=== PATIENT | male | born 1990 | race Caucasian/White ===

== ENCOUNTER 2021-03-16 01:54 | Emergency (ER) | payer OTHER ==
[2021-03-16 02:08] VITALS: TEMP 98.3
[2021-03-16] MEDS ORDERED: SODIUM CHLORIDE 0.9% 500 ML 500 ML IV STA (02:10)
[2021-03-16] MEDS ORDERED: SODIUM CHLORIDE 0.9% 1,000 ML IV STA ×4 (02:10→03:45)
[2021-03-16] MEDS ORDERED: ONDANSETRON 4 MG/2 ML VIAL IVP STA (02:10)
[2021-03-16] MEDS ORDERED: MORPHINE SULFATE 4 MG/ML SYRINGE IV STA (02:10)
--- NOTE | 2021-03-16 02:12 | ED ---
Nausea/Vomiting/Diarrhea HPI - General Chief complaint: Abdominal Pain Stated complaint: ABD Pain Time Seen by Provider: 03/16/21 01:58 Source: patient, EMS, RN notes reviewed, old records reviewed Mode of arrival: EMS Limitations: no limitations - History of Present Illness Initial comments: This is a 30 year old male to the ED for severe abdominal pain, NV, inability to pass bowel movements or inability to pass stool, no flatulence, decreased appeti te for the past week. Patient feels lightheaded dizzy tachycardic. Severe severe abdominal pain with abdominal bloating. Patient is recent history of rectal prolapse surgery almost a week ago to the date. Patient is without fever. Patient is a poor strain secondary to clinical state and history is helped to be obtained from EMS. Patient had surgery at [facility] Dr. Rigoberto ALSTON complaint: nausea, vomiting, diarrhea, abdominal pain -: days(s) Description of Vomiting: food contents Description of Diarrhea: water Associated Abdominal Pain: No Location: diffuse Radiation: none Severity: severe Severity scale (1-10): 10 Quality: constant Consistency: constant Improves with: none Worsens with: none Context: recent surgery/procedure, history of abdominal surgery Associated Symptoms: loss of appetite, nausea/vomiting, weakness - Related Data Allergies Allergy/AdvReac Type Severity Reaction Status Date / Time No Known Allergies Allergy Verified 03/16/21 02:14 Review of Systems ROS Statement: Those systems with pertinent positive or pertinent negative responses have been documented in the HPI. ROS Other: All systems not noted in ROS Statement are negative. Past Medical History Additional Past Medical History / Comment(s): Rectal prolapse History of Any Multi-Drug Resistant Organisms: None Reported Additional Past Surgical History / Comment(s): Rectal Prolapse Repair Smoking Status: Former smoker Past Alcohol Use History: None Reported Past Drug Use History: None Reported General Exam Limitations: no limitations General appearance: alert, in no apparent distress, anxious, lethargic, in distress, cachectic Head exam: Present: atraumatic, normocephalic, normal inspection Eye exam: Present: normal appearance, PERRL, EOMI. Absent: scleral icterus, conjunctival injection, periorbital swelling ENT exam: Present: normal exam, mucous membranes moist Neck exam: Present: normal inspection. Absent: tenderness, meningismus, lymphadenopathy Respiratory exam: Present: normal lung sounds bilaterally. Absent: respiratory distress, wheezes, rales, rhonchi, stridor Cardiovascular Exam: Present: normal rhythm, tachycardia, normal heart sounds. Absent: systolic murmur, diastolic murmur, rubs, gallop, clicks GI/Abdominal exam: Present: distended, tenderness, guarding, rebound, rigid, hypoactive bowel sounds Extremities exam: Present: normal inspection, full ROM, normal capillary refill. Absent: tenderness, pedal edema, joint swelling, calf tenderness Back exam: Present: normal inspection Neurological exam: Present: alert, oriented X3, CN II-XII intact Psychiatric exam: Present: normal affect, normal mood Skin exam: Present: warm, dry, intact, normal color. Absent: rash Course Vital Signs 03/16/21 03/16/21 03/16/21 01:57 02:39 03:17 Temperature 98.3 F Pulse Rate 124 H 113 H 118 H Respiratory 18 30 H 30 H Rate Blood Pressure 128/92 153/89 154/87 O2 Sat by Pulse 95 100 98 Oximetry 03/16/21 03/16/21 03/16/21 03:47 04:08 04:17 Temperature Pulse Rate 163 H 164 H 151 H Respiratory 28 H 30 H 28 H Rate Blood Pressure 131/74 129/85 O2 Sat by Pulse 97 97 98 Oximetry 03/16/21 03/16/21 03/16/21 04:29 04:45 04:59 Temperature Pulse Rate 160 H 154 H 152 H Respiratory 28 H 30 H 30 H Rate Blood Pressure 131/82 135/91 122/60 O2 Sat by Pulse 98 98 97 Oximetry 03/16/21 03/16/21 05:14 05:30 Temperature Pulse Rate 160 H 164 H Respiratory 30 H 18 Rate Blood Pressure 115/80 132/100 O2 Sat by Pulse 98 98 Oximetry - Reevaluation(s) Reevaluation #1: 03/16/21 04:09 medical record is reviewed Reevaluation #2: 03/16/21 04:12 Patient continued of increasing elevated heart rate, increased abdominal pain nausea feels like he 0 bowel movement but is not vomiting and not able to pass any stool No active bloody vomit no active bloody stool - Consultations Consultation #1: Attempt to transfer patient back to [facility] does not except patient transferred Consultation #2: Spoke with our on-call surgeon who is unfamiliar with rectal prolapse surgery and recommends transfer Medical Decision Making - Medical Decision Making 30 male with postop pneumoperitoneum likely rectal perforation with free fluid in the abdomen significant ileus. Unable to transfer patient to the care of his surgeon. Patient will be transferred for definitive care - Lab Data Result diagrams: 03/16/21 02:34 03/16/21 02:34 Lab Results 03/16/21 03/16/21 03/16/21 Range/Units 02:30 02:34 02:34 WBC 13.1 H (3.8-10.6) k/uL RBC 3.81 L (4.30-5.90) m/uL Hgb 11.2 L (13.0-17.5) gm/dL Hct 32.5 L (39.0-53.0) % MCV 85.3 (80.0-100.0) fL MCH 29.5 (25.0-35.0) pg MCHC 34.5 (31.0-37.0) g/dL RDW 12.9 (11.5-15.5) % Plt Count 306 (150-450) k/uL MPV 10.5 Neutrophils % 88 % Lymphocytes % 5 % Monocytes % 5 % Eosinophils % 1 % Basophils % 0 % Neutrophils # 11.5 H (1.3-7.7) k/uL Lymphocytes # 0.7 L (1.0-4.8) k/uL Monocytes # 0.6 (0-1.0) k/uL Eosinophils # 0.1 (0-0.7) k/uL Basophils # 0.0 (0-0.2) k/uL PT 11.1 (9.0-12.0) sec INR 1.1 (<1.2) APTT 27.4 (22.0-30.0) sec VBG pH 7.45 H (7.31-7.41) VBG pCO2 43 (37-51) mmHg VBG HCO3 29 H (24-28) mmol/L Sodium (137-145) mmol/L Potassium (3.5-5.1) mmol/L Chloride (98-107) mmol/L Carbon Dioxide (22-30) mmol/L Anion Gap mmol/L BUN (9-20) mg/dL Creatinine (0.66-1.25) mg/dL Est GFR (CKD-EPI)AfAm (>60 ml/min/1.73 sqM) Est GFR (CKD-EPI)NonAf (>60 ml/min/1.73 sqM) Glucose (74-99) mg/dL Lactic Ac Sepsis Rflx Plasma Lactic Acid Davy (0.7-2.0) mmol/L Calcium (8.4-10.2) mg/dL Phosphorus (2.5-4.5) mg/dL Magnesium (1.6-2.3) mg/dL Total Bilirubin (0.2-1.3) mg/dL AST (17-59) U/L ALT (4-49) U/L Alkaline Phosphatase (38-126) U/L Creatine Kinase (55-170) U/L Troponin I (0.000-0.034) ng/mL Total Protein (6.3-8.2) g/dL Albumin (3.5-5.0) g/dL Lipase (23-300) U/L Serum Alcohol mg/dL Blood Type Blood Type Confirm Blood Type Recheck Bld Type Recheck Status Antibody Screen Spec Expiration Date 03/16/21 03/16/21 03/16/21 Range/Units 02:34 02:34 02:34 WBC (3.8-10.6) k/uL RBC (4.30-5.90) m/uL Hgb (13.0-17.5) gm/dL Hct (39.0-53.0) % MCV (80.0-100.0) fL MCH (25.0-35.0) pg MCHC (31.0-37.0) g/dL RDW (11.5-15.5) % Plt Count (150-450) k/uL MPV Neutrophils % % Lymphocytes % % Monocytes % % Eosinophils % % Basophils % % Neutrophils # (1.3-7.7) k/uL Lymphocytes # (1.0-4.8) k/uL Monocytes # (0-1.0) k/uL Eosinophils # (0-0.7) k/uL Basophils # (0-0.2) k/uL PT (9.0-12.0) sec INR (<1.2) APTT (22.0-30.0) sec VBG pH (7.31-7.41) VBG pCO2 (37-51) mmHg VBG HCO3 (24-28) mmol/L Sodium 125 L (137-145) mmol/L Potassium 3.0 L (3.5-5.1) mmol/L Chloride 85 L (98-107) mmol/L Carbon Dioxide 26 (22-30) mmol/L Anion Gap 14 mmol/L BUN 17 (9-20) mg/dL Creatinine 0.51 L (0.66-1.25) mg/dL Est GFR (CKD-EPI)AfAm >90 (>60 ml/min/1.73 sqM) Est GFR (CKD-EPI)NonAf >90 (>60 ml/min/1.73 sqM) Glucose 123 H (74-99) mg/dL Lactic Ac Sepsis Rflx Plasma Lactic Acid Davy 2.3 H* (0.7-2.0) mmol/L Calcium 8.0 L (8.4-10.2) mg/dL Phosphorus 3.9 (2.5-4.5) mg/dL Magnesium 1.7 (1.6-2.3) mg/dL Total Bilirubin 2.7 H (0.2-1.3) mg/dL AST 78 H (17-59) U/L ALT 49 (4-49) U/L Alkaline Phosphatase 113 (38-126) U/L Creatine Kinase 1190 H* (55-170) U/L Troponin I <0.012 (0.000-0.034) ng/mL Total Protein 5.3 L (6.3-8.2) g/dL Albumin 2.8 L (3.5-5.0) g/dL Lipase <10 L (23-300) U/L Serum Alcohol <10 mg/dL Blood Type Blood Type Confirm Blood Type Recheck Bld Type Recheck Status Antibody Screen Spec Expiration Date 03/16/21 03/16/21 03/16/21 Range/Units 02:38 02:51 03:11 WBC (3.8-10.6) k/uL RBC (4.30-5.90) m/uL Hgb (13.0-17.5) gm/dL Hct (39.0-53.0) % MCV (80.0-100.0) fL MCH (25.0-35.0) pg MCHC (31.0-37.0) g/dL RDW (11.5-15.5) % Plt Count (150-450) k/uL MPV Neutrophils % % Lymphocytes % % Monocytes % % Eosinophils % % Basophils % % Neutrophils # (1.3-7.7) k/uL Lymphocytes # (1.0-4.8) k/uL Monocytes # (0-1.0) k/uL Eosinophils # (0-0.7) k/uL Basophils # (0-0.2) k/uL PT (9.0-12.0) sec INR (<1.2) APTT (22.0-30.0) sec VBG pH (7.31-7.41) VBG pCO2 (37-51) mmHg VBG HCO3 (24-28) mmol/L Sodium (137-145) mmol/L Potassium (3.5-5.1) mmol/L Chloride (98-107) mmol/L Carbon Dioxide (22-30) mmol/L Anion Gap mmol/L BUN (9-20) mg/dL Creatinine (0.66-1.25) mg/dL Est GFR (CKD-EPI)AfAm (>60 ml/min/1.73 sqM) Est GFR (CKD-EPI)NonAf (>60 ml/min/1.73 sqM) Glucose (74-99) mg/dL Lactic Ac Sepsis Rflx Y Plasma Lactic Acid Davy (0.7-2.0) mmol/L Calcium (8.4-10.2) mg/dL Phosphorus (2.5-4.5) mg/dL Magnesium (1.6-2.3) mg/dL Total Bilirubin (0.2-1.3) mg/dL AST (17-59) U/L ALT (4-49) U/L Alkaline Phosphatase (38-126) U/L Creatine Kinase (55-170) U/L Troponin I (0.000-0.034) ng/mL Total Protein (6.3-8.2) g/dL Albumin (3.5-5.0) g/dL Lipase (23-300) U/L Serum Alcohol mg/dL Blood Type O Negative Blood Type Confirm O Negative Blood Type Recheck No Previous Record Bld Type Recheck Status CABO Indicated Antibody Screen NEGATIVE Spec Expiration Date 03/19/20212337 - EKG Data -: EKG Interpreted by Me (EKG is sinus tachycardia 126 SD 126 QRS 90 QTC 483) - Radiology Data Radiology results: report reviewed (CT angios of chest abdomen pelvis does show significant ileus with free fluid in pneumoperitoneum), image reviewed Critical Care Time Critical Care Time: Yes Total Critical Care Time: 75 Disposition Clinical Impression: Abdominal pain, Acute abdomen, Pneumoperitoneum, Tachycardia, Constipation, Ileus, Rectal perforation Disposition: OTHER INSTITUTION NOT DEFINED Condition: Critical Referrals: None,Stated [Primary Care Provider] - 1-2 days - Out of Hospital Transfer - Req. Specs Out of Hospital Transfer - Requested Specifics: Other Emergency Center ([facility])
[2021-03-16 02:57] LABS: VBG PH 7.45 (7.31-7.41)
[2021-03-16 03:04] LABS: Sodium 125 mmol/L (137-145)
[2021-03-16 03:07] LABS: ALT 49 U/L (4-49); AST 78 U/L (17-59); African American GFR (CKD) >90 (>60 ml/min/1.73 sqM); Albumin 2.8 g/dL (3.5-5.0); Alcohol <10 mg/dL; Alkaline Phosphatase 113 U/L (38-126); Anion Gap 14 mmol/L; Blood Urea Nitrogen 17 mg/dL (9-20); Carbon Dioxide 26 mmol/L (22-30); Chloride 85 mmol/L (98-107); Glucose 123 mg/dL (74-99); Lipase <10 U/L (23-300); Magnesium 1.7 mg/dL (1.6-2.3); Non-African American GFR(CKD) >90 (>60 ml/min/1.73 sqM); Phosphorus 3.9 mg/dL (2.5-4.5); Total Bilirubin 2.7 mg/dL (0.2-1.3); Total Protein 5.3 g/dL (6.3-8.2)
[2021-03-16] MEDS ORDERED: PROCHLORPERAZINE INJ 10 MG/2 ML VIAL IVP STA (03:07)
[2021-03-16] MEDS ORDERED: LORazepam 2 MG/ML INJ IV STA (03:07)
[2021-03-16 03:12] LABS: Creatine Kinase 1190 U/L (55-170)
[2021-03-16 03:39] LABS: Basophils % (A) 0 %; Eosinophils # (A) 0.1 k/uL (0-0.7); Eosinophils % (A) 1 %; HCT 32.5 % (39.0-53.0); HGB 11.2 gm/dL (13.0-17.5); Lymphocytes # (A) 0.7 k/uL (1.0-4.8); Lymphocytes % (A) 5 %; MCH 29.5 pg (25.0-35.0); MCHC 34.5 g/dL (31.0-37.0); MCV 85.3 fL (80.0-100.0); Mean Platelet Volume 10.5; Monocytes # (A) 0.6 k/uL (0-1.0); Monocytes % (A) 5 %; Neutrophils # (A) 11.5 k/uL (1.3-7.7); Neutrophils % (A) 88 %; Platelet Count 306 k/uL (150-450); RBC 3.81 m/uL (4.30-5.90); RDW 12.9 % (11.5-15.5); WBC 13.1 k/uL (3.8-10.6)
[2021-03-16 03:44] LABS: INR 1.1 (<1.2); Partial Thromboplastin Time 27.4 sec (22.0-30.0); Prothrombin Time 11.1 sec (9.0-12.0)
[2021-03-16] MEDS ORDERED: HYDROmorphone 1 MG/ML 1 ML SYRINGE IVP STA ×2 (03:45)
--- NOTE | 2021-03-16 03:48 | CT ---
EXAMINATION TYPE: CT angio chest DATE OF EXAM: 03/16/2021 COMPARISON: None HISTORY: R/O PE CT DLP: 320.5 mGycm Automated exposure control for dose reduction was used. CONTRAST: Performed with IV Contrast, patient injected with 100 mL of Isovue 370. There are 3-D post processed images. Images obtained from the thoracic inlet to the diaphragm with IV contrast. There is elevation of the left and right diaphragm. There is some atelectasis at both lung bases. The re is large pneumoperitoneum. There is large amount of low-density free fluid in the abdomen. Heart size is normal. There is no pericardial effusion. There is no mediastinal adenopathy. There are no hilar masses. There is no evidence of filling defect in the pulmonary arteries. The bony thorax i s intact. There are multiple calcified subcarinal and right bronchial lymph nodes. IMPRESSION: No evidence of pulmonary embolism. Bilateral basilar atelectasis. Old granulomatous disease. Large amount of free fluid in the abdomen as well as large pneumoperitoneum. Correlation with the anisa gical history recommended.
[2021-03-16] MEDS ORDERED: AMPICILLIN-SULBACTAM 3 GM in SODIUM CHLORIDE 0.9% 100 ML IVPB STA (03:58)
[2021-03-16] MEDS ORDERED: POTASSIUM CHLORIDE 20 MEQ in WATER FOR INJECTION 1 100ML.BAG IVPB SCH ×2 (04:00→06:00)
--- NOTE | 2021-03-16 04:02 | CT ---
EXAMINATION TYPE: CT abdomen pelvis w con DATE OF EXAM: 03/16/2021 COMPARISON: None HISTORY: Abd Pain, Fever CT DLP: 1574.80 mGycm Automated exposure control for dose reduction was used. CONTRAST: Performed with IV Contrast, patient injected with 100 mL of Isovue 370. Images obtained from the diaphragm to the floor the pelvis with IV contrast. There is some infiltrate and atelectasis at both lung bases. There is large pneumoperitoneum. There i s low-density free fluid in the abdomen around the liver. There are multiple dilated small bowel loop s with fluid. Small bowel measures up to 3.6 cm. There is no focal liver defect. Gallbladder is intact. Spleen is intact. Stomach appears intact. I se e no evidence of pancreatic mass. There is no adrenal mass. Kidneys show satisfactory contrast opacification. There is no hydronephrosi s. Ureters are not dilated. Bladder distends smoothly. Urinary bladder is large. Bladder measures 15 cm in length. Lumbar vertebra have normal spacing and alignment. There is no compression fracture. Posterior elemen ts are intact. The bony pelvis appears intact. Exam limited slightly by motion in the pelvis. There is wall thickening of the rectum with possible intramural air. There is no retroperitoneal vaughn opathy. There is no inguinal hernia. IMPRESSION: Large pneumoperitoneum. Large amount of low-density free fluid in the abdomen. There is rectal wall t hickening and intramural probable air bubbles. Perforation is possible. Follow-up recommended. Dilate d multiple loops of small bowel suggestive of ileus. Large bowel fluid also consistent with ileus.
[2021-03-16 05:46] VITALS: BP 132/100; PULSE 164; RESP 18
[2021-03-16] MEDS ORDERED: AMPICILLIN-SULBACTAM 3 GM in SODIUM CHLORIDE 0.9% 100 ML IVPB SCH (12:00)
== END 2021-03-16 05:32 | disposition other institution (70) ==
LOC: EC 01:54
DX: K59.00 Constipation, unspecified (principal); K66.8 Other specified disorders of peritoneum; K56.7 Ileus, unspecified; K63.1 Perforation of intestine (nontraumatic); R00.0 Tachycardia, unspecified; Z87.891 Personal history of nicotine dependence
CPT/HCPCS: 99285; 96365; 96375 ×6; 96376 ×2; 96361; 93005; 86900; 86901; 80053; 82550; 82803; 83605; 83690; 83735; 84100; 84484; 85025; 85610; 85730; 86850; 80320; 71275; 74177; J2060; J2270; J0780; J3480; J2405; J1170; J0295; Q9967

== ENCOUNTER → 2021-10-21 | Outpatient (CLI) | payer OTHER ==
--- NOTE | 2021-10-22 00:22 | MR ---
EXAMINATION TYPE: MR brain wo con DATE OF EXAM: 10/21/2021 COMPARISON: None HISTORY: Amnesia, was in coma for 2 months in 2020 Multiplanar multiecho imaging of the brain without contrast. Ventricles and sulci appear normal. There is no mass effect or midline shift. There is no sign of int racranial hemorrhage. Hook and white matter structures have normal signal pattern. No cerebral edema. Diffusion images show no evidence of acute infarct. Brainstem appears normal. Sella turcica is jonathon l. Corpus callosum appears normal. There is no evidence of orbital mass. IMPRESSION: Negative MRI scan of the brain.
== END | disposition home or self-care (01) ==
LOC: RADMRIMAIN 20:36
PROVIDERS: ATTEND Physician Assistant
DX: R41.3 Other amnesia (principal)
CPT/HCPCS: 70551

== ENCOUNTER 2023-08-14 08:38 | Emergency (ER) | payer OTHER ==
--- NOTE | 2023-08-14 09:09 | ED ---
General Adult HPI - General Chief complaint: Abdominal Pain Stated complaint: Abdominal pain Time Seen by Provider: 08/14/23 08:51 Source: patient, RN notes reviewed Mode of arrival: ambulatory Limitations: no limitations - History of Present Illness Initial comments: Patient is a pleasant 32-year-old male presents to the emergency department with concerns with abdominal pain. Onset of symptoms was a couple weeks ago. Patient has had some fevers. Patient does have ostomy bag. Patient had most of his rectum removed a couple of years ago following prolapse and surgery. Patient has had some bleeding from the rectum the past couple of weeks inter mittently. Patient has had nausea and vomiting, with limited amount of emesis over the last few days. Patient has had mild cough and intermittent fevers. Abdominal discomfort is 4/10 at this time. Patient does not feel he needs nausea or pain medication at this time. - Related Data Allergies Allergy/AdvReac Type Severity Reaction Status Date / Time No Known Allergies Allergy Verified 03/16/21 02:14 Review of Systems ROS Statement: Those systems with pertinent positive or pertinent negative responses have been documented in the HPI. ROS Other: All systems not noted in ROS Statement are negative. Constitutional: Reports: as per HPI, fever Eyes: Denies: eye pain ENT: Denies: ear pain Respiratory: Reports: cough Cardiovascular: Denies: chest pain Gastrointestinal: Reports: as per HPI, abdominal pain, nausea, vomiting Genitourinary: Denies: dysuria Musculoskeletal: Denies: back pain Past Medical History Additional Past Medical History / Comment(s): Rectal prolapse History of Any Multi-Drug Resistant Organisms: None Reported Past Surgical History: Bowel Resection Additional Past Surgical History / Comment(s): Rectal Prolapse Repair Past Psychological History: Depression, PTSD Smoking Status: Former smoker, Vaper Past Alcohol Use History: None Reported Past Drug Use History: None Reported General Exam Limitations: no limitations General appearance: alert, in no apparent distress Head exam: Present: normocephalic Eye exam: Present: normal appearance Neck exam: Present: normal inspection Respiratory exam: Present: normal lung sounds bilaterally Cardiovascular Exam: Present: regular rate, normal rhythm GI/Abdominal exam: Present: soft, tenderness (Moderate epigastric and left upper), normal bowel sounds. Absent: pulsatile mass Rectal exam: Present: normal inspection. Absent: bloody stool Extremities exam: Present: normal inspection Neurological exam: Present: alert Psychiatric exam: Present: normal affect, normal mood Skin exam: Present: normal color Course Vital Signs 08/14/23 08/14/23 08/14/23 08:41 09:58 12:43 Temperature 98.7 F Pulse Rate 102 H 84 78 Respiratory 20 18 18 Rate Blood Pressure 133/85 118/78 128/76 O2 Sat by Pulse 97 97 96 Oximetry Medical Decision Making - Medical Decision Making Was pt. sent in by a medical professional or institution (, PA, MATCHING MACHINE OPERATOR, urgent care, hospital, or longterm...) When possible be specific @ -No Did you speak to anyone other than the patient for history (EMS, parent, family, police, friend...)? What history was obtained from this source @ -Family is present and helps provide additional history including previous history Did you review nursing and triage notes (agree or disagree)? Why? @ -I reviewed and agree with nursing and triage notes Were old charts reviewed (outside hosp., previous admission, EMS record, old EKG, old radiological studies, urgent care reports/EKG's, longterm records)? Report findings @ -Previous chart and scans reviewed Differential Diagnosis (chest pain, altered mental status, abdominal pain women, abdominal pain men, vaginal bleeding, weakness, fever, dyspnea, syncope, h eadache, dizziness, GI bleed, back pain, seizure, CVA, palpatations, mental health, musculoskeletal)? @ -Differential Abdominal Pain Men: Appendicitis, cholecystitis, diverticulosis, ischemic bowel, pancreatitis, hepatitis, UTI, gastroenteritis, AAA, incarcerated hernia, bowel obstruction, constipation, inflammatory bowel, hepatitis, peptic ulcer disease, splenic infarction, perforated viscus, testicular torsion, this is not meant to be an all-inclusive list EKG interpreted by me (3pts min.). @ -As above X-rays interpreted by me (1pt min.). @ -2 view chest x-ray shows no acute process. Elevated left hemidiaphragm CT interpreted by me (1pt min.). @ -CT scan shows postsurgical changes U/S interpreted by me (1pt. min.). @ -None done What testing was considered but not performed or refused? (CT, X-rays, U/S, labs)? Why? @ -None What meds were considered but not given or refused? Why? @ -None Did you discuss the management of the patient with other professionals (professionals i.e. , PA, MATCHING MACHINE OPERATOR, lab, RT, psych nurse, social media job titles, managing partner, teacher, activities officer, rehabilitation caseworker)? Give summary @ -Case was discussed with Dr. Santos will admit patient with surgical consult. He is covering for Dr. Torres Was smoking cessation discussed for >3mins.? @ -No Was critical care preformed (if so, how long)? @ -No Were there social determinants of health that impacted care today? How? (Homelessness, low income, unemployed, alcoholism, drug addiction, transportation, low edu. Level, literacy, decrease access to med. care, residential, rehab)? @ -No Was there de-escalation of care discussed even if they declined (Discuss DNR or withdrawal of care, Hospice)? DNR status @ -No What co-morbidities impacted this encounter? (DM, HTN, Smoking, COPD, CAD, Cancer, CVA, ARF, Chemo, Hep., AIDS, mental health diagnosis, sleep apnea, morbid obesity)? @ -Previous surgery Was patient admitted / discharged? Hospital course, mention meds given and route, prescriptions, significant lab abnormalities, going to OR and other pertinent info. @ -Patient has limited remanent of rectum. Patient is complaining of rectal bleeding. Patient will be held for surgical consult and probable scope of remaining area. Undiagnosed new problem with uncertain prognosis? @ -No Drug Therapy requiring intensive monitoring for toxicity (Heparin, Nitro, Insulin, Cardizem)? @ -No Were any procedures done? @ -No Diagnosis/symptom? @ -Abdominal pain Acute, or Chronic, or Acute on Chronic? @ -Acute Uncomplicated (without systemic symptoms) or Complicated (systemic symptoms)? @ -Default Side effects of treatment? @ -No Exacerbation, Progression, or Severe Exacerbation? @ -No Poses a threat to life or bodily function? How? (Chest pain, [place], CO, pneumonia, PE, COPD, DKA, ARF, appy, cholecystitis, CVA, Diverticulitis, Homicidal, Suicidal, threat to staff... and all critical care pts) @ -No - Lab Data Result diagrams: 08/14/23 09:38 08/14/23 09:38 Lab Results 08/14/23 08/14/23 08/14/23 Range/Units 09:38 09:38 09:38 WBC 9.5 (3.8-10.6) k/uL RBC 5.67 (4.30-5.90) m/uL Hgb 16.6 (13.0-17.5) gm/dL Hct 49.2 (39.0-53.0) % MCV 86.7 (80.0-100.0) fL MCH 29.3 (25.0-35.0) pg MCHC 33.7 (31.0-37.0) g/dL RDW 13.3 (11.5-15.5) % Plt Count 261 (150-450) k/uL MPV 7.3 Neutrophils % 78 % Lymphocytes % 13 % Monocytes % 5 % Eosinophils % 2 % Basophils % 1 % Neutrophils # 7.4 (1.3-7.7) k/uL Lymphocytes # 1.2 (1.0-4.8) k/uL Monocytes # 0.5 (0-1.0) k/uL Eosinophils # 0.2 (0-0.7) k/uL Basophils # 0.1 (0-0.2) k/uL PT 10.7 (10.0-12.5) sec INR 1.0 (<1.2) APTT 24.6 (22.0-30.0) sec Sodium 140 (137-145) mmol/L Potassium 3.7 (3.5-5.1) mmol/L Chloride 102 (98-107) mmol/L Carbon Dioxide 27 (22-30) mmol/L Anion Gap 11 mmol/L BUN 2 L (9-20) mg/dL Creatinine 0.55 L (0.66-1.25) mg/dL Est GFR (CKD-EPI)AfAm >90 (>60 ml/min/1.73 sqM) Est GFR (CKD-EPI)NonAf >90 (>60 ml/min/1.73 sqM) Glucose 100 H (74-99) mg/dL Calcium 9.0 (8.4-10.2) mg/dL Total Bilirubin 0.6 (0.2-1.3) mg/dL AST 83 H (17-59) U/L ALT 63 H (4-49) U/L Alkaline Phosphatase 106 (38-126) U/L Total Protein 7.0 (6.3-8.2) g/dL Albumin 4.0 (3.5-5.0) g/dL Urine Color Urine Appearance (Clear) Urine pH (5.0-8.0) Ur Specific Muddy (1.001-1.035) Urine Protein (Negative) Urine Glucose (UA) (Negative) Urine Ketones (Negative) Urine Blood (Negative) Urine Nitrite (Negative) Urine Bilirubin (Negative) Urine Urobilinogen (<2.0) mg/dL Ur Leukocyte Esterase (Negative) Urine RBC (0-5) /hpf Urine WBC (0-5) /hpf Ur Squamous Epith Cells (0-4) /hpf Urine Mucus (None) /hpf Stool Occult Blood (Negative) Influenza Type A (PCR) (Not Detectd) Influenza Type B (PCR) (Not Detectd) RSV (PCR) (Not Detectd) SARS-CoV-2 (PCR) (Not Detectd) 08/14/23 08/14/23 08/14/23 Range/Units 09:38 09:38 12:38 WBC (3.8-10.6) k/uL RBC (4.30-5.90) m/uL Hgb (13.0-17.5) gm/dL Hct (39.0-53.0) % MCV (80.0-100.0) fL MCH (25.0-35.0) pg MCHC (31.0-37.0) g/dL RDW (11.5-15.5) % Plt Count (150-450) k/uL MPV Neutrophils % % Lymphocytes % % Monocytes % % Eosinophils % % Basophils % % Neutrophils # (1.3-7.7) k/uL Lymphocytes # (1.0-4.8) k/uL Monocytes # (0-1.0) k/uL Eosinophils # (0-0.7) k/uL Basophils # (0-0.2) k/uL PT (10.0-12.5) sec INR (<1.2) APTT (22.0-30.0) sec Sodium (137-145) mmol/L Potassium (3.5-5.1) mmol/L Chloride (98-107) mmol/L Carbon Dioxide (22-30) mmol/L Anion Gap mmol/L BUN (9-20) mg/dL Creatinine (0.66-1.25) mg/dL Est GFR (CKD-EPI)AfAm (>60 ml/min/1.73 sqM) Est GFR (CKD-EPI)NonAf (>60 ml/min/1.73 sqM) Glucose (74-99) mg/dL Calcium (8.4-10.2) mg/dL Total Bilirubin (0.2-1.3) mg/dL AST (17-59) U/L ALT (4-49) U/L Alkaline Phosphatase (38-126) U/L Total Protein (6.3-8.2) g/dL Albumin (3.5-5.0) g/dL Urine Color Light Yellow Urine Appearance Clear (Clear) Urine pH 6.0 (5.0-8.0) Ur Specific Muddy >1.050 H (1.001-1.035) Urine Protein Trace H (Negative) Urine Glucose (UA) Negative (Negative) Urine Ketones 1+ H (Negative) Urine Blood Trace H (Negative) Urine Nitrite Negative (Negative) Urine Bilirubin Negative (Negative) Urine Urobilinogen <2.0 (<2.0) mg/dL Ur Leukocyte Esterase Negative (Negative) Urine RBC <1 (0-5) /hpf Urine WBC 1 (0-5) /hpf Ur Squamous Epith Cells <1 (0-4) /hpf Urine Mucus Rare H (None) /hpf Stool Occult Blood Positive (Negative) Influenza Type A (PCR) Not Detected (Not Detectd) Influenza Type B (PCR) Not Detected (Not Detectd) RSV (PCR) Not Detected (Not Detectd) SARS-CoV-2 (PCR) Not Detected (Not Detectd) Disposition Clinical Impression: Abdominal pain Disposition: ADMITTED IP TO THIS HOSP Is patient prescribed a controlled substance at d/c from ED?: No Referrals: Cale Torres MD [Primary Care Provider] - 1-2 days Time of Disposition: 13:34
[2023-08-14 09:50] LABS: Basophils # (A) 0.1 k/uL (0-0.2); Basophils % (A) 1 %; Eosinophils # (A) 0.2 k/uL (0-0.7); Eosinophils % (A) 2 %; HCT 49.2 % (39.0-53.0); HGB 16.6 gm/dL (13.0-17.5); Lymphocytes # (A) 1.2 k/uL (1.0-4.8); Lymphocytes % (A) 13 %; MCH 29.3 pg (25.0-35.0); MCHC 33.7 g/dL (31.0-37.0); MCV 86.7 fL (80.0-100.0); Mean Platelet Volume 7.3; Monocytes # (A) 0.5 k/uL (0-1.0); Monocytes % (A) 5 %; Neutrophils # (A) 7.4 k/uL (1.3-7.7); Neutrophils % (A) 78 %; Platelet Count 261 k/uL (150-450); RBC 5.67 m/uL (4.30-5.90); RDW 13.3 % (11.5-15.5); WBC 9.5 k/uL (3.8-10.6)
[2023-08-14] MEDS: PANTOPRAZOLE 40 MG/10 ML VIAL IVP STA (09:54)
[2023-08-14] MEDS: SODIUM CHLORIDE 0.9% 1,000 ML IV STA (09:58)
[2023-08-14 10:02] LABS: Partial Thromboplastin Time 24.6 sec (22.0-30.0); Prothrombin Time 10.7 sec (10.0-12.5)
[2023-08-14 10:04] LABS: ALT 63 U/L (4-49); AST 83 U/L (17-59); African American GFR (CKD) >90 (>60 ml/min/1.73 sqM); Alkaline Phosphatase 106 U/L (38-126); Anion Gap 11 mmol/L; Blood Urea Nitrogen 2 mg/dL (9-20); Carbon Dioxide 27 mmol/L (22-30); Chloride 102 mmol/L (98-107); Glucose 100 mg/dL (74-99); Non-African American GFR(CKD) >90 (>60 ml/min/1.73 sqM); Potassium 3.7 mmol/L (3.5-5.1); Sodium 140 mmol/L (137-145); Total Bilirubin 0.6 mg/dL (0.2-1.3)
[2023-08-14 10:17] VITALS: RESP 18
--- NOTE | 2023-08-14 10:32 | XR ---
EXAMINATION TYPE: XR chest 2V DATE OF EXAM: 08/14/2023 COMPARISON: NONE HISTORY: Cough TECHNIQUE: Frontal and lateral views of the chest are obtained. FINDINGS: There is no focal air space opacity, pleural effusion, or pneumothorax seen. The cardiac silhouette size is within normal limits. The osseous structures are intact. Incidental note is made of eventration of the left hemidiaphragm. There is a 6.5 mm nodule in the rig ht lung base which is most likely. Granuloma and benign IMPRESSION: No acute cardiopulmonary process.
--- NOTE | 2023-08-14 11:13 | CT ---
EXAMINATION TYPE: CT abdomen pelvis w con DATE OF EXAM: 08/14/2023 COMPARISON: 03/16/2021 HISTORY: Rectal bleeding, abdominal pain CT DLP: 1606.2 mGycm Automated exposure control for dose reduction was used. TECHNIQUE: Helical acquisition of images was performed from the lung bases through the pelvis. CONTRAST: Performed without Oral Contrast and with IV Contrast, patient injected with 100 ml mL of Isovue 300. FINDINGS: Lung bases are clear. The gallbladder is normal with no biliary ductal dilatation. There is no focal mass or organomegaly involving liver, pancreas, spleen or adrenal glands. There is no solid renal mass or hydronephrosis. There is no retroperitoneal adenopathy or hemorrhage. There is been interval placement of a left lower quadrant ostomy and there is herniation of mesentery and bowel loops within the ostomy consistent with paraostial hernia. There is no evidence of bowel o bstruction or strangulation. There is no free intraperitoneal air or fluid. There is no pelvic mass, free fluid, abscess or adenopathy. There are postsurgical changes involving the rectum. IMPRESSION: 1. Paraostial hernia as described above. There is no bowel obstruction or strangulation. There is no free intraperitoneal air or fluid or abdominal or pelvic abscess. 2. Postsurgical changes involving the rectum.
[2023-08-14 12:55] LABS: Appearance,Urine Clear (Clear); Bilirubin,Urine Negative (Negative); Blood,Urine Trace (Negative); Color,Urine Light Yellow; Glucose,Urine (UA) Negative (Negative); Ketones,Urine 1+ (Negative); Leukocyte Esterase,Urine Negative (Negative); Mucus,Urine Rare /hpf; Nitrite,Urine Negative (Negative); Protein,Urine Trace (Negative); RBC,Urine <1 /hpf (0-5); Squamous Epithelial Cell,Urine <1 /hpf (0-4); Urobilinogen,Urine <2.0 mg/dL (<2.0); WBC,Urine 1 /hpf (0-5)
[2023-08-14 12:58] LABS: Specific Gravity,Urine >1.050 (1.001-1.035)
[2023-08-14] MEDS ORDERED: NALOXONE 0.4 MG/ML 1 ML VIAL IV PRN (13:34)
[2023-08-14] MEDS ORDERED: HYDROmorphone 0.5 MG/0.5 ML SYRINGE IVP PRN (13:34)
[2023-08-14] MEDS ORDERED: ONDANSETRON 4 MG/2 ML VIAL IVP PRN (13:34)
[2023-08-14] MEDS: SODIUM CHLORIDE 0.9% 1,000 ML IV SCH (13:52)
--- NOTE | 2023-08-14 14:41 | ED ---
Medical Decision Making - Medical Decision Making Patient seen by Dr. Santos in the emergency department. Patient has had symptoms for several weeks now. Both are comfortable with discharge home. Patient is advised to have close follow-up with his surgeon and primary care physician. - Lab Data Result diagrams: 08/14/23 09:38 08/14/23 09:38 Lab Results 08/14/23 08/14/23 08/14/23 Range/Units 09:38 09:38 09:38 WBC 9.5 (3.8-10.6) k/uL RBC 5.67 (4.30-5.90) m/uL Hgb 16.6 (13.0-17.5) gm/dL Hct 49.2 (39.0-53.0) % MCV 86.7 (80.0-100.0) fL MCH 29.3 (25.0-35.0) pg MCHC 33.7 (31.0-37.0) g/dL RDW 13.3 (11.5-15.5) % Plt Count 261 (150-450) k/uL MPV 7.3 Neutrophils % 78 % Lymphocytes % 13 % Monocytes % 5 % Eosinophils % 2 % Basophils % 1 % Neutrophils # 7.4 (1.3-7.7) k/uL Lymphocytes # 1.2 (1.0-4.8) k/uL Monocytes # 0.5 (0-1.0) k/uL Eosinophils # 0.2 (0-0.7) k/uL Basophils # 0.1 (0-0.2) k/uL PT 10.7 (10.0-12.5) sec INR 1.0 (<1.2) APTT 24.6 (22.0-30.0) sec Sodium 140 (137-145) mmol/L Potassium 3.7 (3.5-5.1) mmol/L Chloride 102 (98-107) mmol/L Carbon Dioxide 27 (22-30) mmol/L Anion Gap 11 mmol/L BUN 2 L (9-20) mg/dL Creatinine 0.55 L (0.66-1.25) mg/dL Est GFR (CKD-EPI)AfAm >90 (>60 ml/min/1.73 sqM) Est GFR (CKD-EPI)NonAf >90 (>60 ml/min/1.73 sqM) Glucose 100 H (74-99) mg/dL Calcium 9.0 (8.4-10.2) mg/dL Total Bilirubin 0.6 (0.2-1.3) mg/dL AST 83 H (17-59) U/L ALT 63 H (4-49) U/L Alkaline Phosphatase 106 (38-126) U/L Total Protein 7.0 (6.3-8.2) g/dL Albumin 4.0 (3.5-5.0) g/dL Urine Color Urine Appearance (Clear) Urine pH (5.0-8.0) Ur Specific [place] (1.001-1.035) Urine Protein (Negative) Urine Glucose (UA) (Negative) Urine Ketones (Negative) Urine Blood (Negative) Urine Nitrite (Negative) Urine Bilirubin (Negative) Urine Urobilinogen (<2.0) mg/dL Ur Leukocyte Esterase (Negative) Urine RBC (0-5) /hpf Urine WBC (0-5) /hpf Ur Squamous Epith Cells (0-4) /hpf Urine Mucus (None) /hpf Stool Occult Blood (Negative) Influenza Type A (PCR) (Not Detectd) Influenza Type B (PCR) (Not Detectd) RSV (PCR) (Not Detectd) SARS-CoV-2 (PCR) (Not Detectd) 08/14/23 08/14/23 08/14/23 Range/Units 09:38 09:38 12:38 WBC (3.8-10.6) k/uL RBC (4.30-5.90) m/uL Hgb (13.0-17.5) gm/dL Hct (39.0-53.0) % MCV (80.0-100.0) fL MCH (25.0-35.0) pg MCHC (31.0-37.0) g/dL RDW (11.5-15.5) % Plt Count (150-450) k/uL MPV Neutrophils % % Lymphocytes % % Monocytes % % Eosinophils % % Basophils % % Neutrophils # (1.3-7.7) k/uL Lymphocytes # (1.0-4.8) k/uL Monocytes # (0-1.0) k/uL Eosinophils # (0-0.7) k/uL Basophils # (0-0.2) k/uL PT (10.0-12.5) sec INR (<1.2) APTT (22.0-30.0) sec Sodium (137-145) mmol/L Potassium (3.5-5.1) mmol/L Chloride (98-107) mmol/L Carbon Dioxide (22-30) mmol/L Anion Gap mmol/L BUN (9-20) mg/dL Creatinine (0.66-1.25) mg/dL Est GFR (CKD-EPI)AfAm (>60 ml/min/1.73 sqM) Est GFR (CKD-EPI)NonAf (>60 ml/min/1.73 sqM) Glucose (74-99) mg/dL Calcium (8.4-10.2) mg/dL Total Bilirubin (0.2-1.3) mg/dL AST (17-59) U/L ALT (4-49) U/L Alkaline Phosphatase (38-126) U/L Total Protein (6.3-8.2) g/dL Albumin (3.5-5.0) g/dL Urine Color Light Yellow Urine Appearance Clear (Clear) Urine pH 6.0 (5.0-8.0) Ur Specific [place] >1.050 H (1.001-1.035) Urine Protein Trace H (Negative) Urine Glucose (UA) Negative (Negative) Urine Ketones 1+ H (Negative) Urine Blood Trace H (Negative) Urine Nitrite Negative (Negative) Urine Bilirubin Negative (Negative) Urine Urobilinogen <2.0 (<2.0) mg/dL Ur Leukocyte Esterase Negative (Negative) Urine RBC <1 (0-5) /hpf Urine WBC 1 (0-5) /hpf Ur Squamous Epith Cells <1 (0-4) /hpf Urine Mucus Rare H (None) /hpf Stool Occult Blood Positive (Negative) Influenza Type A (PCR) Not Detected (Not Detectd) Influenza Type B (PCR) Not Detected (Not Detectd) RSV (PCR) Not Detected (Not Detectd) SARS-CoV-2 (PCR) Not Detected (Not Detectd) Disposition Clinical Impression: Abdominal pain Disposition: HOME SELF-CARE Condition: Stable Instructions (If sedation given, give patient instructions): Abdominal Pain (ED) Additional Instructions: Please do follow-up with your primary care physician and your surgeon in the next 1 to 2 days for recheck. Return for increased pain, increased bleeding, vomiting, fevers, worsening or changing symptoms or any other concerns. Is patient prescribed a controlled substance at d/c from ED?: No Referrals: Cale Torres MD [Primary Care Provider] - 1-2 days Time of Disposition: 14:40
[2023-08-14 15:30] VITALS: BP 133/80; PULSE 79; TEMP 98
--- NOTE | 2023-08-14 16:03 | P.CONS ---
History of Present Illness - Reason for Consult Consult date: 08/14/23 Medical consultation Requesting physician: Osman Mejia - Chief Complaint Abdominal pain - History of Present Illness This is a pleasant 32-year-old patient, who has unfortunate prior surgical history. Patient had a rectal prolapse and underwent surgery for the same in 2020. There was some complication from the surgery resulting in patient having part of colon removed. From what he described a very small portion of the rectum was left. And patient has a resultant colostomy. A second surgery was carried out by Layo from [facility]. Normally patient empties his colostomy Yolande twice a day. For over 4 weeks patient been having abdominal pain. Sometimes nausea vomiting. For last 4 weeks is gone on a liquid diet. Has lost close to about 30 pounds he states. Also for last 2 weeks has been having some little sometimes about a teaspoon to a tablespoon rectal bleeding. Denies any fever and chills. [place] CT scan sometime ago and is question about partial small bowel obstruction. Patient also been having abdominal pain. 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 Review of systems: GEN.: Tired EYES: None HEENT: None NECK: None RESPIRATORY: None CARDIOVASCULAR: None GASTROINTESTINAL: As above GENITOURINARY: None MUSCULOSKELETAL: None LYMPHATICS: None HEMATOLOGICAL: None PSYCHIATRY: None Social history: Patient lives with his girlfriend. Has custody of his 2 children 50-50. Denies vaping. Alcohol occasionally. Physical examination: VITAL SIGNS: 98, 79, 18, 133/80, 98% room air GENERAL: BMI 31, reclining bed awake comfortable. EYES: Pupils equal. Conjunctiva jonathon l. HEENT: External appearance of nose and ears normal, oral cavity grossly normal. NECK: JVD not raised; masses not palpable. HEART: First and second heart sounds are normal; no edema. LUNGS: Respiratory rate normal; clear to auscultation. ABDOMEN: Soft, tender, no guarding rigidity., liver spleen not palpable, no masses palpable. Colostomy bag. No obvious external hemorrhoids. PSYCH: Alert and oriented x3; mood and affect jonathon l. MUSCULOSKELETAL:No Clubbing/cyanosis;muscles-grossly intact NEUROLOGICAL: Cranial nerves grossly intact; no facial asymmetry, power and sensation grossly intact. LYMPHATICS: No lymph nodes palpable in the axilla and neck INVESTIGATIONS, reviewed in the clinical context: August 14: White count 9.5 hemoglobin 16.6 platelets 261 sodium 140 potassium 3.7 BUN 2 creatinine 0.55 glucose 100 Stool occult positive Influenza type A, B, RSV, COVID-19: Not detected UA: Negative for nitrite leukoesterase CT scan abdomen: Interval placement of the left lower quadrant ostomy and there is herniation of mesentery and bowel loops within the ostomy consistent with parosteal hernia. No bowel obstruction or strangulation. Ostial hernia. No bowel obstruction. No for free air. Assessment plan: -This is a patient who 2020 had a rectal prolapse surgery that did not go right. Subsequent surgery patient has a colostomy. Only a very small portion of rectum is left. Patient now presents with more than 4 weeks of abdominal pain. Intubated nausea vomiting. Has been on liquid diet. Very little solids. Has l ost close to 30 pounds. Also was having small amounts of blood per rectum. Has no fever no chills. No white count Had a very lengthy discussion with the patient. Discussed the CT scan results of no obstruction. To the hernias present. Patient is well-known to his surgeon out of [facility]. Given that no pressing intervention and probably this our surgeon will refer the patient back to his own surgeon patient is agreeable to go back and see his surgeon. He will make a phone call today to make an appointment to probably get him to see him tomorrow. Patient otherwise hemodynamically stable. This was discussed at length with the patient. I also offered the patient to be admitted and then let her surgeon see him first and then decide from there. But after discussing with him he has felt and I do not disagree that he may be better served with his own surgeon given his symptoms been going on for more than 4 weeks. I spoke to the ER physician Dr. Gary Mejia. And relayed my conversation with the patient. Patient left will be discharged will try to follow-up with his surgeon as early as Tuesday if possible. Patient is will be contacting his surgeon today/tomorrow. -Chronic colostomy Thank you Dr. Mejia Past Medical History Additional Past Medical History / Comment(s): Rectal prolapse History of Any Multi-Drug Resistant Organisms: None Reported Past Surgical History: Bowel Resection Additional Past Surgical History / Comment(s): Rectal Prolapse Repair Past Psychological History: Depression, PTSD Smoking Status: Former smoker, Vaper Past Alcohol Use History: None Reported Past Drug Use History: None Reported Medications and Allergies Home Medications Medication Instructions Recorded Confirmed Type busPIRone HCl [Buspar] 5 mg PO BID PRN 08/14/23 08/14/23 History Allergies Allergy/AdvReac Type Severity Reaction Status Date / Time No Known Allergies Allergy Verified 08/14/23 13:42 Physical Exam Vitals: Vital Signs Temp Pulse Resp BP Pulse Ox 08/14/23 13:53 78 18 117/80 96 08/14/23 12:43 78 18 128/76 96 08/14/23 09:58 84 18 118/78 97 08/14/23 08:41 98.7 F 102 H 20 133/85 97 Intake and Output 08/13/23 08/14/23 08/14/23 22:59 06:59 14:59 Other: Weight 106.594 kg Results CBC & Chem 7: 08/14/23 09:38 08/14/23 09:38 Labs: Abnormal Lab Results - Last 24 Hours (Table) 08/14/23 08/14/23 Range/Units 09:38 12:38 BUN 2 L (9-20) mg/dL Creatinine 0.55 L (0.66-1.25) mg/dL Glucose 100 H (74-99) mg/dL AST 83 H (17-59) U/L ALT 63 H (4-49) U/L Ur Specific [place] >1.050 H (1.001-1.035) Urine Protein Trace H (Negative) Urine Ketones 1+ H (Negative) Urine Blood Trace H (Negative) Urine Mucus Rare H (None) /hpf
[2023-08-15] MEDS ORDERED: PANTOPRAZOLE 40 MG/10 ML VIAL IV SCH (09:00)
== END 2023-08-14 15:07 | disposition home or self-care (01) ==
LOC: EC 08:38 → 6NMEDSUR 13:34 → UNDOADMOB 13:34 → 6NMEDSUR 14:01 → EC 15:07
DX: K43.5 Parastomal hernia without obstruction or gangrene (principal); F17.290 Nicotine dependence, other tobacco product, uncomplicated; Z20.822 Contact with and (suspected) exposure to COVID-19; Z86.59 Personal history of other mental and behavioral disorders
CPT/HCPCS: 36415; 80053; 85025; 85610; 85730; 82272; 81001; 87636; 71046; 74177; 99284; 96374; 96361 ×2; C9113; Q9967

== ENCOUNTER → 2024-04-30 | Outpatient (CLI) | payer MEDICARE ==
--- NOTE | 2024-04-30 09:58 | US ---
EXAMINATION TYPE: US abdomen limited DATE OF EXAM: 04/30/2024 COMPARISON: NONE CLINICAL INDICATION: Male, 33 years old with history of R74.8 ELEVATED LIVER ENZYMES; bloating, eleva janeth labs, patient has h/o prolapsed bowel, surgical repair went wrong, in coma for 1.5 years, has col ostomy bag TECHNIQUE: Grayscale and color Doppler imaging of the right upper quadrant was performed. FINDINGS: EXAM MEASUREMENTS: Liver Length: 16.3 cm Gallbladder Wall: 0.2 cm CBD: 0.5 cm Right Kidney: 10.0 x 4.6 x 5.3 cm NURSE SUPERVISOR NOTES: bowel gas limits exam Pancreas: bowel gas limits exam Liver: difficult to penetrate Gallbladder: wnl Evidence for sonographic Hankins's sign: no CBD: wnl Right Kidney: wnl IMPRESSION: 1. No evidence for acute process. 2. Hepatic steatosis. [facility], , 04/30/2024 9:56 AM
== END | disposition home or self-care (01) ==
LOC: RADUSWWP 09:15
PROVIDERS: ATTEND Pediatrics
CPT/HCPCS: 76705

== ENCOUNTER 2024-05-09 10:56 | Day surgery (SDC) | payer MEDICARE, OTHER ==
[~2024-05-09 10:56] MED LIST: LACTATED RINGERS 1,000 ML IV SCH
[2024-05-09] MEDS: IV FLUID CONTINUATION 1,000 ML IV ONE (11:32)
[2024-05-09 11:34] VITALS: RESP 18; TEMP 98.2
[2024-05-09] MEDS ORDERED: PROPOFOL 10 MG/ML 20 ML VIAL IV ONE (11:41)
[2024-05-09] MEDS ORDERED: MIDAZOLAM 2 MG/2 ML VIAL ONE (11:41)
[2024-05-09] MEDS ORDERED: KETAMINE HCL IN 0.9 % NACL 50 MG/5 ML SYRINGE ONE (11:41)
[2024-05-09] MEDS ORDERED: LIDOCAINE 1% INJ 10MG/ML (20 ML MDV) ONE (11:41)
--- NOTE | 2024-05-09 12:06 | P.PCN ---
Date of Procedure: 05/09/24 Procedure(s) Performed: BRIEF HISTORY: Patient is a 33-year-old, pleasant, white male scheduled for an upper endoscopy as a part evaluation of chronic epigastric pain for the supplements duration. He underwent sigmoid colectomy with colostomy in 2020 and since then has been having diffuse abdominal pain but lately more in epigastric area associated with nausea vomiting almost on a daily basis PROCEDURE PERFORMED: Esophagogastroduodenoscopy with biopsy. PREOPERATIVE DIAGNOSIS: Severe epigastric pain with nausea vomiting of several months duration. IV sedation per anesthesia. PROCEDURE: After informed consent was obtained, the patient was brought into the endoscopy unit. IV sedation was administered by Anesthesia under continuous monitoring. Initially the Olympus GIF-140 video endoscope was inserted into the mouth. Esophagus intubated without any difficulty. It was gradually advanced into the stomach and duodenum and carefully examined. The bulb and the second part of the duodenum appeared normal. The scope at this time was withdrawn to the stomach, adequately insufflated with air, and upon careful examination, mucosa of the antrum patchy areas of erythema consistent with gastritis and biopsies were done from this area. Mucosa of the, body, cardia and the fundus appeared normal. The scope was then withdrawn into the esophagus. No hiatal hernia noted. The GE junction was located at 39 cm from the incisors. There were 2 superficial erosions at the GE junction consistent with LA grade B reflux esophagitis. Rest of the esophagus appeared normal and the patient tolerated the procedure well. IMPRESSION: 1. Linear erosions of the distal esophagus consistent with LA grade B reflux esophagitis. 2. Small hiatal hernia 3, minimal antral gastritis. RECOMMENDATIONS: The findings of this examination were discussed with the patient as well as his family. He was advised to follow-up with the biopsy results. He will be started on omeprazole 20 mg twice daily and continue with dicyclomine as needed. Follow-up in the office in 2 weeks..
[2024-05-09 12:45] VITALS: BP 133/83; PULSE 64
== END 2024-05-09 13:07 ==
LOC: ORWHC2ENDO 10:56
PROVIDERS: ATTEND Internal Medicine Gastroenterology
DX: K29.50 Unspecified chronic gastritis without bleeding (principal); K21.00 Gastro-esophageal reflux disease with esophagitis, without bleeding; K22.10 Ulcer of esophagus without bleeding; K44.9 Diaphragmatic hernia without obstruction or gangrene; F17.290 Nicotine dependence, other tobacco product, uncomplicated; Z79.899 Other long term (current) drug therapy; Z90.49 Acquired absence of other specified parts of digestive tract; Z93.3 Colostomy status
CPT/HCPCS: 43239; J2250; J2003; J2704; 88305

== ENCOUNTER → 2024-06-14 | Outpatient (CLI) | payer MEDICARE, OTHER ==
[2024-06-14 15:20] LABS: ALT 58 U/L (10-49); AST 48 U/L (14-35); Albumin 4.7 g/dL (3.8-4.9); Albumin/Globulin Ratio 1.68 Ratio (1.60-3.17); Alkaline Phosphatase 60 U/L (41-126); BUN/Creat Ratio 9.22 Ratio (12.00-20.00); Blood Urea Nitrogen 8.3 mg/dL (9.0-27.0); Calcium 9.6 mg/dL (8.7-10.3); Carbon Dioxide 24.2 mmol/L (21.6-31.8); Chloride 98 mmol/L (96-109); Globulin 2.8 g/dL (1.6-3.3); Glucose 86 mg/dL (70-110); Potassium 4.3 mmol/L (3.5-5.5); Sodium 137 mmol/L (135-145); Total Bilirubin 0.8 mg/dL (0.3-1.2); Total Protein 7.5 g/dL (6.2-8.2)
[2024-06-14 17:03] LABS: Basophils # (A) 0.07 X 10*3/uL (0.00-0.10); Basophils % (A) 0.9 %; Eosinophils % (A) 1.3 %; HCT 47.9 % (39.6-50.0); HGB 15.8 g/dL (13.0-17.0); Lymphocytes # (A) 1.19 X 10*3/uL (0.90-5.00); Lymphocytes % (A) 15.4 %; MCH 30.6 pg (27.0-32.0); MCV 92.6 FL (80.0-97.0); Mean Platelet Volume 10.6 FL (9.5-12.2); Monocytes # (A) 0.56 X 10*3/uL (0.20-1.00); Monocytes % (A) 7.3 %; NRBC Per 100 WBC 0 X 10*3/uL (0.00-0.01); Neutrophils # (A) 5.77 X 10*3/uL (1.80-7.70); Neutrophils % (A) 74.7 %; Platelet Count 230 X 10*3/uL (140-440); RBC 5.17 X 10*6/uL (4.40-5.60); RDW 12.9 % (11.5-14.5); WBC 7.72 X 10*3/uL (4.50-10.00)
[2024-06-14 17:37] LABS: Erythrocyte Sedimentation Rate 11 mm/Hr (0-15)
[2024-06-15 19:22] LABS: Gliadin AB IgA, Deaminated Negative (Negative); Gliadin AB IgA, Unit 1.2 U/mL; Gliadin AB IgG, Deaminated Negative (Negative); Gliadin AB IgG, Unit <0.4 U/mL
== END | disposition home or self-care (01) ==
LOC: LABWHC1 11:19
PROVIDERS: ATTEND Internal Medicine Gastroenterology
DX: R10.9 Unspecified abdominal pain (principal)
CPT/HCPCS: 36415; 80053; 83516; 85025; 85652; 86140

== ENCOUNTER → 2024-06-25 | Outpatient (CLI) | payer MEDICARE, OTHER ==
--- NOTE | 2024-06-25 12:56 | FL ---
EXAMINATION TYPE: FL UGI air w small bowel DATE OF EXAM: 06/25/2024 COMPARISON: None CLINICAL INDICATION: Male, 33 years old with history of R10.9 ABD PAIN; PHH, TECHNIQUE: A single contrast UGI study is performed with small bowel follow through. A total of 96 seconds of fluoroscopic time was utilized during procedure and 24 images obtained. Total dose area p roduct (DAP) in uGy*m?, mGy*cm? (or similar): A provide. FINDINGS: Spooler Operator image of the abdomen shows no gross abnormality. Calcified granuloma right upper madyson drant. Scoliosis of the spine. Esophageal peristalsis and motility is normal. The stomach shows normal distensibility, peristalsis, and mucosal folds. No evidence of any mass or ulcer disease. No significant esophageal reflux was seen during real time performance of this study. The proximal loops of small bowel appear to be thickened. There appears to be mild fold thickening of the proximal jejunum. The small bowel study shows normal transit to the colon in less than 5 minutes. There is normal muco rasta fold pattern throughout the small bowel. There is no evidence of any stricture or filling defect noted. The terminal ileum is unremarkable. IMPRESSION: 1. Mild fold thickening of the proximal jejunum and distal duodenum could be related to mild enteriti s. No evidence of obstruction. [facility], , 06/25/2024 12:54 PM
== END | disposition home or self-care (01) ==
LOC: RADFLMAIN 08:02
PROVIDERS: ATTEND Internal Medicine Gastroenterology
DX: K63.89 Other specified diseases of intestine (principal); R10.9 Unspecified abdominal pain
CPT/HCPCS: 74240; 74248

== ENCOUNTER 2024-07-18 11:47 | Day surgery (SDC) | payer MEDICARE, OTHER ==
[2024-07-16 15:45] VITALS: BMI 35.6
[~2024-07-18 11:47] MED LIST changes: +LIDOCAINE 1% (10MG/ML) FOR IV START INTRADERMA PRN; +ONDANSETRON 4 MG/2 ML VIAL IVP PRN
[2024-07-18 12:48] VITALS: TEMP 97.1
[2024-07-18] MEDS: IV FLUID CONTINUATION 500 ML IV ONE (12:52)
[2024-07-18] MEDS ORDERED: LIDOCAINE 1% INJ 10MG/ML (20 ML MDV) ONE (13:34)
[2024-07-18] MEDS ORDERED: PROPOFOL 10 MG/ML 20 ML VIAL IV ONE (13:34)
--- NOTE | 2024-07-18 13:52 | P.PCN ---
Date of Procedure: 07/18/24 Procedure(s) Performed: BRIEF HISTORY: Patient is a 33-year-old pleasant white male scheduled for an elective colonoscopy via the colostomy as a part of evaluation of diffuse lower abdominal pain associate with intermittent nausea vomiting for the last 2 years duration. Had history of rectal prolapse for which he underwent surgery that was complicated by sigmoid perforation and subsequently underwent sigmoid colectomy with colostomy. Since then he continues to have abdominal discomfort almost on a daily basis. He had an upper GI small bowel series that was unremarkable. PROCEDURE PERFORMED: Colonoscopy via colostomy. PREOPERATIVE DIAGNOSIS: Lower abdominal pain. IV sedation per Anesthesia. PROCEDURE: After informed consent was obtained, the patient, was brought into the endoscopy unit. IV sedation was administered by Anesthesia under continuous monitoring. He was placed in supine position. The colostomy site was exposed which was located in the left lower quadrant area. There was mild prolapse of the colostomy noted. Digital examination was normal. Initially the Olympus CF-160 flexible video colonoscope was then inserted into the colostomy gradually advanced into the cecum without any difficulty. Careful examination was performed as the scope was gradually being withdrawn. Ileocecal valve and the appendiceal orifice were visualized and appeared normal. Prep was excellent. Mucosa of the cecum, ascending colon, transverse colon, descending colon, appeared normal. Scattered diverticulosis seen. The patient tolerated the procedure well. IMPRESSION: Normal-appearing colon all the way up to the cecum with no evidence of colitis or colorectal neoplasia Scattered diverticulosis RECOMMENDATIONS: Findings of this examination were discussed with the patient as well as his family. He was advised to continue with a high-fiber diet and use Bentyl as needed for the lower abdominal pain. In the office in 2 weeks. Recommended repeat colonoscopy at age 44..
[2024-07-18 14:27] VITALS: BP 160/90; PULSE 70; RESP 20
== END 2024-07-18 14:47 | disposition home or self-care (01) ==
LOC: ORWHC2ENDO 11:47
PROVIDERS: ATTEND Internal Medicine Gastroenterology
DX: R10.30 Lower abdominal pain, unspecified (principal); R11.2 Nausea with vomiting, unspecified; K57.30 Diverticulosis of large intestine without perforation or abscess without bleeding; F17.290 Nicotine dependence, other tobacco product, uncomplicated; Z93.3 Colostomy status; Z87.19 Personal history of other diseases of the digestive system; Z90.49 Acquired absence of other specified parts of digestive tract
CPT/HCPCS: 44388; J2003; J2704

== ENCOUNTER → 2024-08-03 | Outpatient (CLI) | payer MEDICARE, OTHER ==
--- NOTE | 2024-08-03 11:38 | CT ---
EXAMINATION TYPE: CT abdomen and pelvis wo contrast CT angio abdomen pelvis DATE OF EXAM: 08/03/2024 11:00 AM COMPARISON: 08/14/2023 CLINICAL INDICATION: Male, 33 years old with history of R10.9 UNSPECIFIED ABDOMINAL PAIN, Abdominal p ain., TECHNIQUE: CT of the abdomen and pelvis before and after administration of 100 ml Isovue-370 IV contr ast. Coronal and sagittal reconstructions performed. 3-D reconstructions generated on a dedicated in dependent workstation. CT DLP: 2596.8 mGycm, Automated exposure control for dose reduction was used. FINDINGS: The heart is upper limits of normal in size without pericardial effusion. Asymmetric elevation left h emidiaphragm with some adjacent pleural parenchymal scarring at the lateral left base suggesting some diaphragmatic tethering. Calcified granuloma posterior right lung base. No pleural effusion. No abdominal aortic aneurysm. Celiac axis, SMA bilateral blackwell renal arteries, and JAYCEE are patent . The iliac arteries are also patent. No significant atelectatic changes are seen. Noncontrast and early arterial phase imaging of the liver, gallbladder, adrenal glands, right kidney, spleen, and pancreas shows no gross abnormality. Possible tiny 9 mm cortical cyst lateral left kidney. Post laparotomy change along the anterior midline abdominal wall redemonstrated. There is a left lower quadrant sigmoid colostomy. There is parastomal hernia containing nonobstructed small bowel and mesentery. Hernia sac measures up to 10.6 cm wide by 3.3 cm abdominal wall defect. T his in comparison to 7.4 cm wide previously and a 2.4 cm abdominal wall defect. No dilated small bowel, free fluid, or free air. Focal soft tissue in the left mid abdominal mesentery for an area of 5.5 cm previously measured 4.4 c m. However, there is diminished confluent appearance to the abnormal opacity. Otherwise, no other progressive mesenteric or retroperitoneal adenopathy is seen. Normal appendix. Multiple moderate stool. Postsurgical change distal colon resection. The soft tissue density at the distal aspect of the rectum abuts the seminal vesicles with unchanged configuration c ompared to 08/14/2023 suggesting chronic postsurgical and posttreatment change. No definite new or pro gressive soft tissue density is seen here. Prostate gland borderline at 4.1 cm wide. Mild to moderate cerebral pressure bladder wall thickening. No abnormal fluid collection in the pelvis or pelvic lymphadenopathy seen Bones: Levoconvex scoliosis lumbar spine. No osseous destructive process. IMPRESSION: 1. NO SPECIFIC ABNORMALITY OF THE ARTERIAL VASCULATURE. 2. LEFT LOWER QUADRANT SIGMOID COLOSTOMY AND DISTAL COLON RESECTION. THE SOFT TISSUE APPEARANCE TO TH E RECTAL STUMP IS UNCHANGED FROM 08/14/2023 SUGGESTING CHRONIC POSTSURGICAL AND POSTTREATMENT CHANGE. 3. FOCAL SOFT TISSUE IN THE LEFT MESENTERY. WHILE SLIGHTLY LARGER AT 5.5 CM (VERSUS 4.4 CM, PREVIOUSL Y) SHOWS A LESS CONFLUENT APPEARANCE. PROBABLY SITE OF TREATED DISEASE. GIVEN THE LARGER SIZE, SHORT INTERVAL FOLLOW-UP IS ADVISED. 4. THE PATIENT'S COLOSTOMY IS ASSOCIATED WITH A PARASTOMAL HERNIA CONTAINING NONOBSTRUCTED SMALL PETRA L LOOPS AND MESENTERY. HERNIA SAC MEASURES 10.6 CM WIDE NOW VERSUS 7.4 CM, PREVIOUSLY. [facility], , 08/03/2024 11:35 AM
== END | disposition home or self-care (01) ==
LOC: RADCTMAIN 10:15
PROVIDERS: ATTEND Internal Medicine Gastroenterology
DX: K43.5 Parastomal hernia without obstruction or gangrene (principal); Z93.3 Colostomy status
CPT/HCPCS: 74174; Q9967

== ENCOUNTER 2024-10-30 18:46 | Emergency (ER) | payer MEDICARE, OTHER ==
[2024-10-30 19:03] VITALS: RESP 18; TEMP 98.5
--- NOTE | 2024-10-30 20:06 | ED ---
General Adult HPI - General Chief complaint: Syncope Stated complaint: Near syncope Time Seen by Provider: 10/30/24 19:17 Source: patient Limitations: no limitations - History of Present Illness Initial comments: Patient is a 34-year-old gentleman with a past medical history of multiple prior abdominal surgeries, colostomy, presenting today for near syncope. Patient states over the last 2 days he has noticed his urine to be darker than normal, looking like "limeade". Over this time he states that he has not felt quite right and has had episodes where he will suddenly feel short of breath, like he can't breathe through his nose and he sees starts seeing spots in his vision. States that if he begins breathing through his mouth his symptoms begin to improve. Tonight he was sitting at home and had a similar episode where he felt like he was going to pass out but never fully lost consciousness. States that he felt as though his jaw was tightening up and spasming and felt as though he noticed two swollen spots on either side of his neck under his jaw. These symptoms have since resolved. Endorses associated neck tightness and intermittent headaches. Describes headaches as "migraines" but denies having any history of migraines, stating he feels like they are migraines because of his his girlfriend has described her migraines. States he will "mainline" ibuprofen and headache will improve. Currently denies headache, changes in vision, focal numbness or weakness, chest pain, hemoptysis, difficulty in breathing, LE swelling, hx CA, family history sudden cardiac , hx blood clots/clotting disorders, is a nonsmoker, no recent travel, surgeries or hospitalizations. States he has had sweats but has not measured any fevers. Denies dysuria endorses urinary frequency.Patient has an ostomy and has continued to have good output into his ostomy. Denies melena, hematochezia or new abdominal pain, but endorses chronic abdominal pain that he has had ongoing since his multiple abdominal surgeries 3 years ago. - Related Data Home Medications Medication Instructions Recorded Confirmed Dicyclomine [Bentyl] 10 mg PO TID PRN 05/07/24 07/18/24 Allergies Allergy/AdvReac Type Severity Reaction Status Date / Time No Known Allergies Allergy Verified 10/30/24 19:03 Review of Systems ROS Statement: Those systems with pertinent positive or pertinent negative responses have been documented in the HPI. ROS Other: All systems not noted in ROS Statement are negative. Constitutional: Reports: chills. Denies: fever Eyes: Denies: vision change Respiratory: Reports: dyspnea. Denies: hemoptysis Cardiovascular: Reports: palpitations. Denies: chest pain, edema, syncope Gastrointestinal: Reports: abdominal pain (chronic). Denies: nausea, vomiting, melena, hematochezia Genitourinary: Reports: frequency. Denies: dysuria, hematuria Neurological: Reports: headache. Denies: weakness, numbness, paresthesias Past Medical History Additional Past Medical History / Comment(s): Rectal prolapse. History of Any Multi-Drug Resistant Organisms: None Reported Past Surgical History: Bowel Resection Additional Past Surgical History / Comment(s): Rectal Prolapse Repair. pt has ostomy bag Past Anesthesia/Blood Transfusion Reactions: No Reported Reaction Past Psychological History: Depression, PTSD Smoking Status: Former smoker, Vaper General Exam - General Exam Comments Initial Comments: PE: CONSTITUTIONAL: No apparent distress, well appearing SKIN: Warm, dry, no jaundice, hives or petechiae EYES: Pupils are equally round, extraocular movements intact without nystagmus, clear conjunctiva, non-icteric sclera HENT: Normocephalic, atraumatic, moist mucus membranes, oropharynx clear without exudates NECK: , Full range of motion, normal appearance, no cervical adenopathy, no thyromegaly or palpable masses PULMONARY: Clear to auscultation without wheezes, rhonchi, or rales, normal excursion, no accessory muscle use and no stridor CARDIOVASCULAR: Regular rate, rhythm, normal S1 and S2. No appreciated murmurs, rubs or gallops. Strong radial pulses with intact distal perfusion. No lower extremity edema GASTROINTESTINAL: Soft, active bowel sounds throughout, non-tender, non- distended, no palpable masses, no rebound or guarding. No hepatosplenomegaly, ostomy in place with soft brown stool in bag MUSCULOSKELETAL: Extremities have no gross deformity, no edema, redness, or swelling. No calf swelling NEUROLOGIC:_a/o x 3, GCS 15, normal mentation and speech. Moves all extremities x 4 without motor or sensory deficit PSYCHIATRIC:_normal mood and affect, thought process is clear and linear Limitations: no limitations Course Vital Signs 10/30/24 10/30/24 10/30/24 19:01 19:28 20:47 Temperature 98.5 F Pulse Rate 76 68 65 Pulse Rate [ Field Crop [employer]er ] Respiratory 18 18 18 Rate Blood Pressure 116/78 122/93 110/79 Blood Pressure [Left Arm Sitting] Blood Pressure [Left Arm Supine] O2 Sat by Pulse 97 96 97 Oximetry 10/30/24 10/30/24 21:41 22:23 Temperature Pulse Rate 77 Pulse Rate [ 92 Field Crop Grower ] Respiratory 18 Rate Blood Pressure 119/88 Blood Pressure 125/80 [Left Arm Sitting] Blood Pressure 118/95 [Left Arm Supine] O2 Sat by Pulse 98 Oximetry EKG Findings - EKG Comments: EKG Findings:: Sinus rhythm, rate 67 bpm intervals within acceptable limits, normal axis, no ST elevations or depressions, no arrhythmia, no delta waves or Brugada pattern Medical Decision Making - Medical Decision Making Was pt. sent in by a medical professional or institution (, PA, MIX TECHNICIAN, urgent care, hospital, or fci...) When possible be specific @ -No Did you speak to anyone other than the patient for history (EMS, parent, family, police, friend...)? What history was obtained from this source @ -No Did you review nursing and triage notes (agree or disagree)? Why? @ -I reviewed and agree with nursing and triage notes Were old charts reviewed (outside hosp., previous admission, EMS record, old EKG, old radiological studies, urgent care reports/EKG's, fci records)? Report findings @ -Medical records reviewed Differential Diagnosis (chest pain, altered mental status, abdominal pain women, abdominal pain men, vaginal bleeding, weakness, fever, dyspnea, syncope, headache, dizziness, GI bleed, back pain, seizure, CVA, palpatations, mental health, musculoskeletal)? Differential Syncope: Valvular disease, hypertrophic cardiomyopathy, pulmonary embolism, tamponade, tachycardia, bradycardia, RI, hypovolemia, hemorrhage, anemia, intracranial hemorrhage, seizure, hypoglycemia, this is not meant to be an all-inclusive list. EKG interpreted by me (3pts min.). @ -As above X-rays interpreted by me (1pt min.). @Personally reviewed chest x-ray send evidence of cardiomegaly, consolidations or pleural effusions, I agree with radiologist interpretation CT interpreted by me (1pt min.). Personally reviewed CT brain I see no evidence of hemorrhage or mass effect, agree with radiologist interpretation U/S interpreted by me (1pt. min.). @ -None done What testing was considered but not performed or refused? (CT, X-rays, U/S, labs)? Why? @ -None What meds were considered but not given or refused? Why? @ -None Did you discuss the management of the patient with other professionals (professionals i.e. DrRobbie, PA, MIX TECHNICIAN, lab, RT, psych nurse, social professionals, lead instructor/flight attendant, te acher, hydrological technical officer, director of casework services)? Give summary @ -No Was smoking cessation discussed for >3mins.? @ -No Was critical care preformed (if so, how long)? @ -No Were there social determinants of health that impacted care today? How? (Homelessness, low income, unemployed, alcoholism, drug addiction, transportation, low edu. Level, literacy, decrease access to med. care, nursing home, rehab)? @ -No Was there de-escalation of care discussed even if they declined (Discuss DNR or withdrawal of care, Hospice)? @ -No What co-morbidities impacted this encounter? (DM, HTN, Smoking, COPD, CAD, Cancer, CVA, ARF, Chemo, Hep., AIDS, mental health diagnosis, sleep apnea, morbid obesity)? @ -None Was patient admitted / discharged? Hospital course, mention meds given and route, prescriptions, significant lab abnormalities, going to OR and other pertinent info. Discharged-this is a 34-year-old male past medical history multiple abdominal surgeries, ostomy presenting for near syncope. Vital signs stable on arrival. On my assessment patient is well-appearing in no acute distress. He has no focal neurologic deficits, no palpable neck masses, no cervical adenopathy or thyromegaly, lungs are clear to auscultation bilaterally. Abdomen is soft and nontender. No family history sudden cardiac . No risk factors for PE. Will obtain comprehensive labs, chest x-ray, D-dimer, troponin, EKG, orthostatic vital signs, urinalysis. Cepheid testing. Administer IV fluids. Plan for CT brain due to new headaches, though I have a low suspicion for intracranial mass given symptoms and no focal neuro deficits on exam. Labs reviewed- appear to be reflective of hemoconcentration with slightly elevated white blood cell count, RBC, hemoglobin and hematocrit, D-dimer 0.26, sodium 135, GFR within normal limits, glucose of 72 troponin within normal limits, ketones 2+ in urine. Pt was given PO orange juice, blood sugar rechecked and 94. Orthostatic vital signs were obtained after IV fluids, and were overall unremarkable, though these results were skewed due to being done after IV fluids administered. On reassessment patient continues to be comfortable appearing. Updated him to findings and concerns for dehydration. Discussed with him the importance of increasing his electrolyte rich fluid intake and monitoring for any persistent or worsening symptoms. Of note, pt did see his PCP for similar symptoms this morning, states that labs were drawn and his PCP sent him home. Directed pt to follow up with PCP in the morning regarding today's visit. In my medical judgment there is currently no evidence of an immediate life- threatening or surgical condition. Discharge is therefore indicated at this anju e. Discharge treatment instructions, follow up instructions, and appropriate emergency department return precautions were discussed with the patient and/or medical decision maker. Patient and/or medical decision maker expressed understanding of and agreed with the treatment plan, follow up instructions, and emergency department return precaution. All patient's and/or medical decision maker's questions were answered. The patient was advised that a small risk still exists that a serious condition could develop and was therefore instructed to return to the ED for any changes in symptoms, persistent symptoms, inability to obtain proper follow-up or for any further concerns. Patient received verbal and written instructions for this condition. Undiagnosed new problem with uncertain prognosis? @ -No Drug Therapy requiring intensive monitoring for toxicity (Heparin, Nitro, Insulin, Cardizem)? @ -No Were any procedures done? @ -No Diagnosis/symptom? @Near-syncope, dehydration Acute, or Chronic, or Acute on Chronic? @Acute Uncomplicated (without systemic symptoms) or Complicated (systemic symptoms)? @complicated Side effects of treatment? @ -No Exacerbation, Progression, or Severe Exacerbation? @ -No Poses a threat to life or bodily function? How? (Chest pain, USA, RI, pneumonia, PE, COPD, DKA, ARF, appy, cholecystitis, CVA, Diverticulitis, Homicidal, Suicidal, threat to staff... and all critical care pts) @ -No - Lab Data Result diagrams: 10/30/24 20:18 10/30/24 20:18 Lab Results 10/30/24 10/30/24 10/30/24 Range/Units 20:18 20:18 20:18 WBC 12.00 H (4.50-10.00) 10*3/uL RBC 5.93 H (4.40-5.60) 10*6/uL Hgb 17.7 H (13.0-17.0) g/dL Hct 50.3 H (39.6-50.0) % MCV 84.8 (80.0-97.0) fL MCH 29.8 (27.0-32.0) pg MCHC 35.2 (32.0-37.0) g/dL Plt Count 332 (140-440) 10*3/uL MPV 10.2 (9.5-12.2) fL Immature Gran % (Auto) 0.3 % Neutrophils % 80.5 % Lymphocytes % 11.8 % Monocytes % 6.1 % Eosinophils % 0.5 % Basophils % 0.8 % Immature Gran # 0.04 (0.00-0.04) 10*3/uL Neutrophils # 9.66 H (1.80-7.70) 10*3/uL Lymphocytes # 1.42 (0.90-5.00) 10*3/uL Monocytes # 0.73 (0.20-1.00) 10*3/uL Eosinophils # 0.06 (0.04-0.35) 10*3/uL Basophils # 0.09 (0.00-0.10) 10*3/uL PT 12.3 (10.0-12.5) sec INR 1.1 (<1.2) APTT 28.0 (22.0-30.0) sec D-Dimer 0.26 (<0.60) mg/L FEU Sodium (137-145) mmol/L Potassium (3.5-5.1) mmol/L Chloride (98-107) mmol/L Carbon Dioxide (22-30) mmol/L Anion Gap mmol/L BUN (9-20) mg/dL Creatinine (0.66-1.25) mg/dL Est GFR (CKD-EPI)AfAm (>60 ml/min/1.73 sqM) Est GFR (CKD-EPI)NonAf (>60 ml/min/1.73 sqM) Glucose (74-99) mg/dL POC Glucose (mg/dL) (70-110) mg/dL POC Glu Biometrics Head ID Calcium (8.4-10.2) mg/dL Magnesium (1.6-2.3) mg/dL Total Bilirubin (0.2-1.3) mg/dL AST (17-59) U/L ALT (4-49) U/L Alkaline Phosphatase (38-126) U/L Troponin I (0.000-0.034) ng/mL NT-Pro-B Natriuret Pep pg/mL Total Protein (6.3-8.2) g/dL Albumin (3.5-5.0) g/dL Urine Color Colorless Urine Appearance Clear (Clear) Urine pH 5.0 (5.0-8.0) Ur Specific [place] 1.003 (1.001-1.035) Urine Protein Negative (Negative) Urine Glucose (UA) Negative (Negative) Urine Ketones 2+ H (Negative) Urine Blood Negative (Negative) Urine Nitrite Negative (Negative) Urine Bilirubin Negative (Negative) Urine Urobilinogen <2.0 (<2.0) mg/dL Ur Leukocyte Esterase Negative (Negative) Influenza Type A (PCR) (Not Detectd) Influenza Type B (PCR) (Not Detectd) RSV (PCR) (Not Detectd) SARS-CoV-2 (PCR) (Not Detectd) 10/30/24 10/30/24 10/30/24 Range/Units 20:18 20:18 20:18 WBC (4.50-10.00) 10*3/uL RBC (4.40-5.60) 10*6/uL Hgb (13.0-17.0) g/dL Hct (39.6-50.0) % MCV (80.0-97.0) fL MCH (27.0-32.0) pg MCHC (32.0-37.0) g/dL Plt Count (140-440) 10*3/uL MPV (9.5-12.2) fL Immature Gran % (Auto) % Neutrophils % % Lymphocytes % % Monocytes % % Eosinophils % % Basophils % % Immature Gran # (0.00-0.04) 10*3/uL Neutrophils # (1.80-7.70) 10*3/uL Lymphocytes # (0.90-5.00) 10*3/uL Monocytes # (0.20-1.00) 10*3/uL Eosinophils # (0.04-0.35) 10*3/uL Basophils # (0.00-0.10) 10*3/uL PT (10.0-12.5) sec INR (<1.2) APTT (22.0-30.0) sec D-Dimer (<0.60) mg/L FEU Sodium 135 L (137-145) mmol/L Potassium 3.8 (3.5-5.1) mmol/L Chloride 99 (98-107) mmol/L Carbon Dioxide 16 L (22-30) mmol/L Anion Gap 20 mmol/L BUN 3 L (9-20) mg/dL Creatinine 0.62 L (0.66-1.25) mg/dL Est GFR (CKD-EPI)AfAm >90 (>60 ml/min/1.73 sqM) Est GFR (CKD-EPI)NonAf >90 (>60 ml/min/1.73 sqM) Glucose 72 L (74-99) mg/dL POC Glucose (mg/dL) (70-110) mg/dL POC Glu Biometrics Head ID Calcium 9.7 (8.4-10.2) mg/dL Magnesium 1.6 (1.6-2.3) mg/dL Total Bilirubin 0.9 (0.2-1.3) mg/dL AST 46 (17-59) U/L ALT 44 (4-49) U/L Alkaline Phosphatase 61 (38-126) U/L Troponin I <0.012 (0.000-0.034) ng/mL NT-Pro-B Natriuret Pep <20 pg/mL Total Protein 7.1 (6.3-8.2) g/dL Albumin 4.5 (3.5-5.0) g/dL Urine Color Urine Appearance (Clear) Urine pH (5.0-8.0) Ur Specific [place] (1.001-1.035) Urine Protein (Negative) Urine Glucose (UA) (Negative) Urine Ketones (Negative) Urine Blood (Negative) Urine Nitrite (Negative) Urine Bilirubin (Negative) Urine Urobilinogen (<2.0) mg/dL Ur Leukocyte Esterase (Negative) Influenza Type A (PCR) Not Detected (Not Detectd) Influenza Type B (PCR) Not Detected (Not Detectd) RSV (PCR) Not Detected (Not Detectd) SARS-CoV-2 (PCR) Not Detected (Not Detectd) 10/30/24 Range/Units 21:59 WBC (4.50-10.00) 10*3/uL RBC (4.40-5.60) 10*6/uL Hgb (13.0-17.0) g/dL Hct (39.6-50.0) % MCV (80.0-97.0) fL MCH (27.0-32.0) pg MCHC (32.0-37.0) g/dL Plt Count (140-440) 10*3/uL MPV (9.5-12.2) fL Immature Gran % (Auto) % Neutrophils % % Lymphocytes % % Monocytes % % Eosinophils % % Basophils % % Immature Gran # (0.00-0.04) 10*3/uL Neutrophils # (1.80-7.70) 10*3/uL Lymphocytes # (0.90-5.00) 10*3/uL Monocytes # (0.20-1.00) 10*3/uL Eosinophils # (0.04-0.35) 10*3/uL Basophils # (0.00-0.10) 10*3/uL PT (10.0-12.5) sec INR (<1.2) APTT (22.0-30.0) sec D-Dimer (<0.60) mg/L FEU Sodium (137-145) mmol/L Potassium (3.5-5.1) mmol/L Chloride (98-107) mmol/L Carbon Dioxide (22-30) mmol/L Anion Gap mmol/L BUN (9-20) mg/dL Creatinine (0.66-1.25) mg/dL Est GFR (CKD-EPI)AfAm (>60 ml/min/1.73 sqM) Est GFR (CKD-EPI)NonAf (>60 ml/min/1.73 sqM) Glucose (74-99) mg/dL POC Glucose (mg/dL) 94 (70-110) mg/dL POC Glu Biometrics Head ID [place] Calcium (8.4-10.2) mg/dL Magnesium (1.6-2.3) mg/dL Total Bilirubin (0.2-1.3) mg/dL AST (17-59) U/L ALT (4-49) U/L Alkaline Phosphatase (38-126) U/L Troponin I (0.000-0.034) ng/mL NT-Pro-B Natriuret Pep pg/mL Total Protein (6.3-8.2) g/dL Albumin (3.5-5.0) g/dL Urine Color Urine Appearance (Clear) Urine pH (5.0-8.0) Ur Specific [place] (1.001-1.035) Urine Protein (Negative) Urine Glucose (UA) (Negative) Urine Ketones (Negative) Urine Blood (Negative) Urine Nitrite (Negative) Urine Bilirubin (Negative) Urine Urobilinogen (<2.0) mg/dL Ur Leukocyte Esterase (Negative) Influenza Type A (PCR) (Not Detectd) Influenza Type B (PCR) (Not Detectd) RSV (PCR) (Not Detectd) SARS-CoV-2 (PCR) (Not Detectd) Disposition Clinical Impression: Near syncope, Dehydration Disposition: HOME SELF-CARE Condition: Good Instructions (If sedation given, give patient instructions): Dehydration (ED), Near Syncope (ED) Additional Instructions: Every disease is a spectrum and a small chance still exists that a serious condition could develop, for this reason, please monitor yourself closely for new, changing or worsening symptoms, symptoms that do not begin to improve over the course the next 48 hours, new onset chest pain, difficulty breathing, coughing up blood, loss of consciousness, changes in vision, new numbness or weakness, fever, inability to tolerate/keep down fluids or your medications, alison bility to follow up with outpatient providers as instructed and should you experience these symptoms or should you have any further concerns for your wellbeing please return to the ED or call 911 immediately. Please increase your fluid intake, especially electrolyte rich fluids such as Pedialyte and Gatorade. Please eat frequent snacks throughout the day to maintain a stable blood sugar. PLEASE call your primary care physician as soon as possible to arrange / discuss plan for followup appointment. Appointment in the next 1-3 days is strongly encouraged if possible. PLEASE let us know here before you leave if there is anything further we can do to be of any assistance. Take care and feel Better! Is patient prescribed a controlled substance at d/c from ED?: No Referrals: Cale Torres MD [Primary Care Provider] - 1-2 days
[2024-10-30 20:26] LABS: Basophils # (A) 0.09 10*3/uL (0.00-0.10); Basophils % (A) 0.8 %; Eosinophils # (A) 0.06 10*3/uL (0.04-0.35); Eosinophils % (A) 0.5 %; HCT 50.3 % (39.6-50.0); HGB 17.7 g/dL (13.0-17.0); Lymphocytes # (A) 1.42 10*3/uL (0.90-5.00); Lymphocytes % (A) 11.8 %; MCH 29.8 pg (27.0-32.0); MCHC 35.2 g/dL (32.0-37.0); MCV 84.8 fL (80.0-97.0); Mean Platelet Volume 10.2 fL (9.5-12.2); Monocytes # (A) 0.73 10*3/uL (0.20-1.00); Monocytes % (A) 6.1 %; Neutrophils # (A) 9.66 10*3/uL (1.80-7.70); Neutrophils % (A) 80.5 %; Platelet Count 332 10*3/uL (140-440); RBC 5.93 10*6/uL (4.40-5.60); RDW 12.3 % (11.5-14.5)
[2024-10-30 20:42] LABS: Appearance,Urine Clear (Clear); Bilirubin,Urine Negative (Negative); Blood,Urine Negative (Negative); Color,Urine Colorless; Glucose,Urine (UA) Negative (Negative); Ketones,Urine 2+ (Negative); Leukocyte Esterase,Urine Negative (Negative); Nitrite,Urine Negative (Negative); Protein,Urine Negative (Negative); Specific Gravity,Urine 1.003 (1.001-1.035); Urobilinogen,Urine <2.0 mg/dL (<2.0)
[2024-10-30] MEDS: SODIUM CHLORIDE 0.9% 1,000 ML IV STA (20:45)
[2024-10-30 20:46] LABS: INR 1.1 (<1.2); Prothrombin Time 12.3 sec (10.0-12.5)
[2024-10-30] MEDS: CYCLOBENZAPRINE 10 MG TAB PO STA (20:46)
--- NOTE | 2024-10-30 20:46 | XR ---
EXAMINATION TYPE: XR chest 2V DATE OF EXAM: 10/30/2024 8:42 PM COMPARISON: Chest radiographs from 08/14/2023 TECHNIQUE: XR chest 2V Frontal and lateral views of the chest. CLINICAL INDICATION:Male, 34 years old with history of syncope; FINDINGS: Lungs/Pleura: There is no evidence of pleural effusion, focal consolidation, or pneumothorax. Chroni c elevation of the left hemidiaphragm. Pulmonary vascularity: Unremarkable. Heart/mediastinum: Cardiomediastinal silhouette is unremarkable. Musculoskeletal: No acute osseous pathology. IMPRESSION: No acute cardiopulmonary disease/process. [facility], , 10/30/2024 8:44 PM
--- NOTE | 2024-10-30 20:48 | CT ---
EXAMINATION TYPE: CT brain wo con CT DLP: 1184.4 mGycm, Automated exposure control for dose reduction was used. DATE OF EXAM: 10/30/2024 8:41 PM COMPARISON: MRI brain 10/21/2021 CLINICAL INDICATION:Male, 34 years old with history of near syncope, new headaches, Syncope, headache TECHNIQUE: Brain: Multiple axial CT images of the brain were obtained without IV contrast. . Coronal and sagitta l reformats reviewed. FINDINGS: Brain: Extra-axial spaces: No abnormal extra-axial fluid collections. Ventricular system: Within normal limits Cerebral parenchyma: No acute intraparenchymal hemorrhage or mass effect. The chavez-white junction is well differentiated. Cerebellum: Unremarkable. Mass effect: No evidence of midline shift. Intracranial vasculature: unremarkable Soft tissues: Normal. Calvarium/osseous structures: No depressed skull fracture. Paranasal sinuses and mastoid air cells: The mastoid air cells are clear. Mild mucosal thickening in the ethmoid sinuses. Visualized orbits: Orbital contents are intact. IMPRESSION: No acute intracranial process. [facility], , 10/30/2024 8:46 PM
[2024-10-30 21:17] LABS: Influenza A Not Detected (Not Detectd); Influenza B Not Detected (Not Detectd); RSV Not Detected (Not Detectd)
[2024-10-30 21:22] LABS: ALT 44 U/L (4-49); AST 46 U/L (17-59); African American GFR (CKD) >90 (>60 ml/min/1.73 sqM); Albumin 4.5 g/dL (3.5-5.0); Alkaline Phosphatase 61 U/L (38-126); Anion Gap 20 mmol/L; Blood Urea Nitrogen 3 mg/dL (9-20); Calcium 9.7 mg/dL (8.4-10.2); Carbon Dioxide 16 mmol/L (22-30); Chloride 99 mmol/L (98-107); Glucose 72 mg/dL (74-99); Magnesium 1.6 mg/dL (1.6-2.3); Non-African American GFR(CKD) >90 (>60 ml/min/1.73 sqM); Potassium 3.8 mmol/L (3.5-5.1); Sodium 135 mmol/L (137-145); Total Bilirubin 0.9 mg/dL (0.2-1.3); Total Protein 7.1 g/dL (6.3-8.2)
[2024-10-30 21:30] LABS: NT-Pro-B-Type Natriuretic Pept <20 pg/mL
[2024-10-30 22:00] LABS: Glucose,Whole Blood 94 mg/dL (70-110)
[2024-10-30 22:24] VITALS: BP 119/88; PULSE 77
== END 2024-10-30 22:24 | disposition home or self-care (01) ==
LOC: EC 18:46
DX: R55 Syncope and collapse (principal); E86.0 Dehydration; F17.290 Nicotine dependence, other tobacco product, uncomplicated
CPT/HCPCS: 36415; 70450; 71046; 80053; 81003; 83735; 83880; 84484; 85025; 85379; 85610; 85730; 87636; 93005; 96360; 99285

== ENCOUNTER 2024-11-04 11:49 | Observation (INO) | payer MEDICARE, OTHER ==
[2024-11-04 12:18] LABS: Glucose,Whole Blood 97 mg/dL (70-110)
--- NOTE | 2024-11-04 12:34 | ED ---
General Adult HPI - General Chief complaint: Chest Pain Stated complaint: chest pain Time Seen by Provider: 11/04/24 12:24 Source: patient, EMS, RN notes reviewed, old records reviewed Mode of arrival: EMS - History of Present Illness Initial comments: Patient is a 34-year-old male presents emergency department complaining of multiple complaints. 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 Patient states that throughout the week this week he has noticed some "locked jaw" sensation and some jaw tightness. Intermittently will get chest pain. States that when he stands up he also feels like he is going to faint or nearly faints. Denies any injuries from this. States he chronically is weak from his hospital stay and sees physical therapy currently. Denies any new weakness. States that while on laying down in bed he has no significant complaints other than the lockjaw. Denies any shortness of breath or cough. Denies any abdominal pain, nausea, vomiting. Denies any current chest pain but states that occasionally over the last few days he gets chest tightness sensation across his chest. Currently is alert and oriented x 4 with no obvious acute focal deficits. Presents for further evaluation at this time. - Related Data Home Medications Medication Instructions Recorded Confirmed Dicyclomine [Bentyl] 20 mg PO QID 11/04/24 11/04/24 busPIRone HCl [Buspar] 5 mg PO BID PRN 11/04/24 11/04/24 Allergies Allergy/AdvReac Type Severity Reaction Status Date / Time No Known Allergies Allergy Verified 11/04/24 14:02 Review of Systems ROS Statement: Those systems with pertinent positive or pertinent negative responses have been documented in the HPI. Review of Systems: CONST: Denies fever EYES: Denies blurry vision ENT: Endorses "locked jaw" C/V: Denies Chest pain RESP: Denies shortness of breath GI: Denies abdominal pain : Denies dysuria SKIN: Denies rash. MSK: Denies joint pain. NEURO: Denies headache ROS Other: All systems not noted in ROS Statement are negative. 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 pt has ostomy bag Past Anesthesia/Blood Transfusion Reactions: No Reported Reaction Past Psychological History: Depression, PTSD Smoking Status: Former smoker, Vaper Past Alcohol Use History: Daily Past Drug Use History: Marijuana General Exam - General Exam Comments Initial Comments: General: Appears in no acute distress. HEAD: Normal with no signs of head trauma. EYES: PERRLA, EOMI, conjunctiva normal, no discharge. ENT: Hearing grossly intact, normal oropharynx. Patient unwilling versus unable to open jaw completely. Complains of some pain along his mandible and the musculature beneath. No obvious mass palpated. No stridor. RESPIRATORY: Clear breath sounds bilaterally. No wheezes, rales, or rhonchi. C/V: Regular rate and rhythm. S1 and S2 auscultated, no edema, peripheral pulses 2+ and intact throughout ABD: Abd is soft, nontender, nondistended. Ostomy site appears well. EXT: Normal range of motion, no obvious deformity SKIN: No rashes or lesions observed on exposed skin. NEURO: Alert and oriented x 4. No obvious focal deficits. Chronic weakness of the bilateral lower extremities per patient. Course Vital Signs 11/04/24 11/04/24 11/04/24 11:52 13:15 14:44 Temperature 98.6 F Pulse Rate 89 73 90 Pulse Rate [ Left] Respiratory 22 18 20 Rate Blood Pressure 129/85 136/87 130/76 Blood Pressure [Left Arm] O2 Sat by Pulse 99 98 100 Oximetry 11/04/24 11/04/24 11/04/24 14:55 16:00 16:32 Temperature 98.4 F Pulse Rate 103 H 76 Pulse Rate [ 85 Left] Respiratory 18 20 16 Rate Blood Pressure 134/76 Blood Pressure 129/75 [Left Arm] O2 Sat by Pulse 99 97 97 Oximetry Medical Decision Making - Medical Decision Making Was pt. sent in by a medical professional or institution (, PA, QUILL MACHINE TENDER, urgent care, hospital, or fci...) When possible be specific @ -No Did you speak to anyone other than the patient for history (EMS, parent, family, police, friend...)? What history was obtained from this source @ -No Did you review nursing and triage notes (agree or disagree)? Why? @ -I reviewed and agree with nursing and triage notes Were old charts reviewed (outside hosp., previous admission, EMS record, old EKG, old radiological studies, urgent care reports/EKG's, fci records)? Report findings @ -Reviewed visit from October 2024 for similar complaints. Workup at that time remarkable for what appears to be dehydration. Was discharged home. Differential Diagnosis (chest pain, altered mental status, abdominal pain women, abdominal pain men, vaginal bleeding, weakness, fever, dyspnea, syncope, headache, dizziness, GI bleed, back pain, seizure, CVA, palpatations, mental health, musculoskeletal)? @ -Differential Weakness: Hypoglycemia, shock, sepsis, hyponatremia, anemia, infection, DE, ETOH, adverse medicine reaction, overdose, stroke, this is not meant to be an all-inclusive list. EKG interpreted by me (3pts min.). @ -As above X-rays interpreted by me (1pt min.). @ -Chest x-ray reveals no obvious acute cardiopulmonary process. CT interpreted by me (1pt min.). @ -CT soft tissue neck shows no evidence of process. U/S interpreted by me (1pt. min.). @ -None done What testing was considered but not performed or refused? (CT, X-rays, U/S, labs)? Why? @ -Considered CT brain but patient recently had CT brain done the other day. No new symptoms. No indication for repeat. Alert and oriented x 4 at this time. No focal deficits. What meds were considered but not given or refused? Why? @ -None Did you discuss the management of the patient with other professionals (professionals i.e. , PA, QUILL MACHINE TENDER, lab, RT, psych nurse, social media content specialist, stereotyper helper, teacher, chief investment officer, medical case worker)? Give summary @ -Discussed with admitting provider, Dr. Santos accepted the admission. Was smoking cessation discussed for >3mins.? @ -No Was critical care preformed (if so, how long)? @ -No Were there social determinants of health that impacted care today? How? (Homelessness, low income, unemployed, alcoholism, drug addiction, transportation, low edu. Level, literacy, decrease access to med. care, [facility], rehab)? @ -No Was there de-escalation of care discussed even if they declined (Discuss DNR or withdrawal of care, Hospice)? DNR status @ -No What co-morbidities impacted this encounter? (DM, HTN, Smoking, COPD, CAD, Canc er, CVA, ARF, Chemo, Hep., AIDS, mental health diagnosis, sleep apnea, morbid obesity)? @ -None Was patient admitted / discharged? Hospital course, mention meds given and route, prescriptions, significant lab abnormalities, going to OR and other pertinent info. @ -Based on the patient's presentation and physical exam, presents with multiple complaints. Intermittent chest pain for multiple days, intermittent shortness of breath, lockjaw, as well as syncopal episodes. Seen here a few days ago for similar complaints and Eric presents because it is still happening. Currently is complaining some lockjaw. Vitals are within acceptable limits. Patient will be given IV fluids, Norflex, Ativan. Will obtain CT soft tissue neck as this is the site of his primary complaint today. We also obtain general workup. Considered CT brain however he recently had a CT brain I do not believe we need to repeat at this time. He was in agreement this plan. EKG shows no signs of acute ischemia.Imaging unremarkable. Laboratory studies are remarkable for tach acidosis of 3.3, hypomagnesemia of 1.5, elevated AST and ALT likely secondary to alcohol use as he is currently intoxicant with alcohol, as well as an elevated creatinine kinase of 2000. Alcohol level is 38. I discussed results with the patient. Cardiopulmonary workup unremarkable but I am concerned for possible early rhabdomyolysis considering the patient's glycogen storage disease as well as the elevated creatinine kinase. Lactic acid is also elevated. Patient given more IV fluids, IV magnesium. Patient is feeling overall improved at this time but we will admit for cardiology evaluation due to his intermittent chest pain. We will trend the troponin. Will continue with IV fluid hydration. I spoke with the admitting provider, Dr. Santos who accepted the admission. Undiagnosed new problem with uncertain prognosis? @ -No Drug Therapy requiring intensive monitoring for toxicity (Heparin, Nitro, Insulin, Cardizem)? @ -No Were any procedures done? @ -No Diagnosis/symptom? @ -Chest pain, syncope, hypomagnesemia, rhabdomyolysis Acute, or Chronic, or Acute on Chronic? @ -Acute Uncomplicated (without systemic symptoms) or Complicated (systemic symptoms)? @ -Complicated Side effects of treatment? @ -None Exacerbation, Progression, or Severe Exacerbation] @ -No Poses a threat to life or bodily function? @ -Potentially, yes - Lab Data Result diagrams: 11/04/24 12:31 11/04/24 12:31 Lab Results 11/04/24 11/04/24 11/04/24 Range/Units 12:16 12:31 12:31 WBC 5.12 (4.50-10.00) 10*3/uL RBC 5.91 H (4.40-5.60) 10*6/uL Hgb 17.6 H (13.0-17.0) g/dL Hct 49.1 (39.6-50.0) % MCV 83.1 (80.0-97.0) fL MCH 29.8 (27.0-32.0) pg MCHC 35.8 (32.0-37.0) g/dL Plt Count 288 (140-440) 10*3/uL MPV 10.4 (9.5-12.2) fL Immature Gran % (Auto) 0.6 % Neutrophils % 56.4 % Lymphocytes % 29.9 % Monocytes % 8.2 % Eosinophils % 2.9 % Basophils % 2.0 % Immature Gran # 0.03 (0.00-0.04) 10*3/uL Neutrophils # 2.89 (1.80-7.70) 10*3/uL Lymphocytes # 1.53 (0.90-5.00) 10*3/uL Monocytes # 0.42 (0.20-1.00) 10*3/uL Eosinophils # 0.15 (0.04-0.35) 10*3/uL Basophils # 0.10 (0.00-0.10) 10*3/uL PT 11.7 (10.0-12.5) sec INR 1.1 (<1.2) APTT 25.4 (22.0-30.0) sec D-Dimer 0.28 (<0.60) mg/L FEU Sodium (137-145) mmol/L Potassium (3.5-5.1) mmol/L Chloride (98-107) mmol/L Carbon Dioxide (22-30) mmol/L Anion Gap mmol/L BUN (9-20) mg/dL Creatinine (0.66-1.25) mg/dL Est GFR (CKD-EPI)AfAm (>60 ml/min/1.73 sqM) Est GFR (CKD-EPI)NonAf (>60 ml/min/1.73 sqM) Glucose (74-99) mg/dL POC Glucose (mg/dL) 97 (70-110) mg/dL POC Glu Teacher Learning Disabled ID Jonathan Naranjo Lactic Ac Sepsis Rflx Plasma Lactic Acid Davy (0.7-2.0) mmol/L Calcium (8.4-10.2) mg/dL Magnesium (1.6-2.3) mg/dL Total Bilirubin (0.2-1.3) mg/dL AST (17-59) U/L ALT (4-49) U/L Alkaline Phosphatase (38-126) U/L Creatine Kinase (55-170) U/L Troponin I (0.000-0.034) ng/mL Total Protein (6.3-8.2) g/dL Albumin (3.5-5.0) g/dL Urine Color Urine Appearance (Clear) Urine pH (5.0-8.0) Ur Specific [place] (1.001-1.035) Urine Protein (Negative) Urine Glucose (UA) (Negative) Urine Ketones (Negative) Urine Blood (Negative) Urine Nitrite (Negative) Urine Bilirubin (Negative) Urine Urobilinogen (<2.0) mg/dL Ur Leukocyte Esterase (Negative) Urine Opiates Screen (NotDetected) Ur Oxycodone Screen (NotDetected) Urine Methadone Screen (NotDetected) Ur Barbiturates Screen (NotDetected) U Tricyclic Antidepress (NotDetected) Ur Phencyclidine Scrn (NotDetected) Ur Amphetamines Screen (NotDetected) U Methamphetamines Scrn (NotDetected) U Benzodiazepines Scrn (NotDetected) Urine Cocaine Screen (NotDetected) U Marijuana (THC) Screen (NotDetected) Serum Alcohol mg/dL 11/04/24 11/04/24 11/04/24 Range/Units 12:31 12:31 12:31 WBC (4.50-10.00) 10*3/uL RBC (4.40-5.60) 10*6/uL Hgb (13.0-17.0) g/dL Hct (39.6-50.0) % MCV (80.0-97.0) fL MCH (27.0-32.0) pg MCHC (32.0-37.0) g/dL Plt Count (140-440) 10*3/uL MPV (9.5-12.2) fL Immature Gran % (Auto) % Neutrophils % % Lymphocytes % % Monocytes % % Eosinophils % % Basophils % % Immature Gran # (0.00-0.04) 10*3/uL Neutrophils # (1.80-7.70) 10*3/uL Lymphocytes # (0.90-5.00) 10*3/uL Monocytes # (0.20-1.00) 10*3/uL Eosinophils # (0.04-0.35) 10*3/uL Basophils # (0.00-0.10) 10*3/uL PT (10.0-12.5) sec INR (<1.2) APTT (22.0-30.0) sec D-Dimer (<0.60) mg/L FEU Sodium 137 (137-145) mmol/L Potassium 3.8 (3.5-5.1) mmol/L Chloride 104 (98-107) mmol/L Carbon Dioxide 16 L (22-30) mmol/L Anion Gap 17 mmol/L BUN <2 L (9-20) mg/dL Creatinine 0.58 L (0.66-1.25) mg/dL Est GFR (CKD-EPI)AfAm >90 (>60 ml/min/1.73 sqM) Est GFR (CKD-EPI)NonAf >90 (>60 ml/min/1.73 sqM) Glucose 98 (74-99) mg/dL POC Glucose (mg/dL) (70-110) mg/dL POC Glu Teacher Learning Disabled ID Lactic Ac Sepsis Rflx Plasma Lactic Acid Davy 3.3 H* (0.7-2.0) mmol/L Calcium 9.2 (8.4-10.2) mg/dL Magnesium 1.5 L (1.6-2.3) mg/dL Total Bilirubin 0.8 (0.2-1.3) mg/dL AST 236 H (17-59) U/L ALT 154 H (4-49) U/L Alkaline Phosphatase 67 (38-126) U/L Creatine Kinase 2067 H* (55-170) U/L Troponin I <0.012 (0.000-0.034) ng/mL Total Protein 6.7 (6.3-8.2) g/dL Albumin 4.1 (3.5-5.0) g/dL Urine Color Urine Appearance (Clear) Urine pH (5.0-8.0) Ur Specific [place] (1.001-1.035) Urine Protein (Negative) Urine Glucose (UA) (Negative) Urine Ketones (Negative) Urine Blood (Negative) Urine Nitrite (Negative) Urine Bilirubin (Negative) Urine Urobilinogen (<2.0) mg/dL Ur Leukocyte Esterase (Negative) Urine Opiates Screen (NotDetected) Ur Oxycodone Screen (NotDetected) Urine Methadone Screen (NotDetected) Ur Barbiturates Screen (NotDetected) U Tricyclic Antidepress (NotDetected) Ur Phencyclidine Scrn (NotDetected) Ur Amphetamines Screen (NotDetected) U Methamphetamines Scrn (NotDetected) U Benzodiazepines Scrn (NotDetected) Urine Cocaine Screen (NotDetected) U Marijuana (THC) Screen (NotDetected) Serum Alcohol 38 mg/dL 11/04/24 11/04/24 11/04/24 Range/Units 13:30 13:40 13:40 WBC (4.50-10.00) 10*3/uL RBC (4.40-5.60) 10*6/uL Hgb (13.0-17.0) g/dL Hct (39.6-50.0) % MCV (80.0-97.0) fL MCH (27.0-32.0) pg MCHC (32.0-37.0) g/dL Plt Count (140-440) 10*3/uL MPV (9.5-12.2) fL Immature Gran % (Auto) % Neutrophils % % Lymphocytes % % Monocytes % % Eosinophils % % Basophils % % Immature Gran # (0.00-0.04) 10*3/uL Neutrophils # (1.80-7.70) 10*3/uL Lymphocytes # (0.90-5.00) 10*3/uL Monocytes # (0.20-1.00) 10*3/uL Eosinophils # (0.04-0.35) 10*3/uL Basophils # (0.00-0.10) 10*3/uL PT (10.0-12.5) sec INR (<1.2) APTT (22.0-30.0) sec D-Dimer (<0.60) mg/L FEU Sodium (137-145) mmol/L Potassium (3.5-5.1) mmol/L Chloride (98-107) mmol/L Carbon Dioxide (22-30) mmol/L Anion Gap mmol/L BUN (9-20) mg/dL Creatinine (0.66-1.25) mg/dL Est GFR (CKD-EPI)AfAm (>60 ml/min/1.73 sqM) Est GFR (CKD-EPI)NonAf (>60 ml/min/1.73 sqM) Glucose (74-99) mg/dL POC Glucose (mg/dL) (70-110) mg/dL POC Glu Teacher Learning Disabled ID Lactic Ac Sepsis Rflx Y Plasma Lactic Acid Davy (0.7-2.0) mmol/L Calcium (8.4-10.2) mg/dL Magnesium (1.6-2.3) mg/dL Total Bilirubin (0.2-1.3) mg/dL AST (17-59) U/L ALT (4-49) U/L Alkaline Phosphatase (38-126) U/L Creatine Kinase (55-170) U/L Troponin I (0.000-0.034) ng/mL Total Protein (6.3-8.2) g/dL Albumin (3.5-5.0) g/dL Urine Color Colorless Urine Appearance Clear (Clear) Urine pH 6.0 (5.0-8.0) Ur Specific [place] 1.009 (1.001-1.035) Urine Protein Negative (Negative) Urine Glucose (UA) Negative (Negative) Urine Ketones 1+ H (Negative) Urine Blood Negative (Negative) Urine Nitrite Negative (Negative) Urine Bilirubin Negative (Negative) Urine Urobilinogen <2.0 (<2.0) mg/dL Ur Leukocyte Esterase Negative (Negative) Urine Opiates Screen Not Detected (NotDetected) Ur Oxycodone Screen Not Detected (NotDetected) Urine Methadone Screen Not Detected (NotDetected) Ur Barbiturates Screen Not Detected (NotDetected) U Tricyclic Antidepress Not Detected (NotDetected) Ur Phencyclidine Scrn Not Detected (NotDetected) Ur Amphetamines Screen Not Detected (NotDetected) U Methamphetamines Scrn Not Detected (NotDetected) U Benzodiazepines Scrn Not Detected (NotDetected) Urine Cocaine Screen Not Detected (NotDetected) U Marijuana (THC) Screen Detected H (NotDetected) Serum Alcohol mg/dL - EKG Data -: EKG Interpreted by Me EKG Comments: 12-lead Electrocardiogram Interpretation Note EKG was reviewed and interpreted by myself. 12-lead ECG performed at 1212 is interpreted by me as revealing normal sinus rhythm at a rate of 73 beats per minute. [place] is normal. NE interval is 147 ms, QRS duration is 100 ms, QTc is 424 ms.. There were no ST or T wave abnormalities to suggest myocardial ischemia or injury. R wave progression across the precordium was satisfactory. By my interpretation this EKG is non-diagnostic for acute ischemia. Disposition Clinical Impression: Chest pain, Syncope, Hypomagnesemia, Rhabdomyolysis Disposition: ADMITTED IP TO THIS HOSP Condition: Stable Time of Disposition: 14:32
--- NOTE | 2024-11-04 12:58 | XR ---
EXAMINATION TYPE: XR chest 2V DATE OF EXAM: 11/04/2024 CLINICAL INDICATION: Male, 34 years old with history of syncope, weakness TECHNIQUE: Frontal and lateral views of the chest are obtained. COMPARISON: Chest x-ray October 30, 2024 FINDINGS: There is no focal air space opacity, pleural effusion, or pneumothorax seen. The cardiac silhouette size is stable and upper limits of normal. The osseous structures are intact. IMPRESSION: No acute cardiopulmonary process. [facility], , 11/04/2024 12:55 PM
[2024-11-04 12:59] LABS: Eosinophils # (A) 0.15 10*3/uL (0.04-0.35); Eosinophils % (A) 2.9 %; HCT 49.1 % (39.6-50.0); HGB 17.6 g/dL (13.0-17.0); Lymphocytes # (A) 1.53 10*3/uL (0.90-5.00); Lymphocytes % (A) 29.9 %; MCH 29.8 pg (27.0-32.0); MCHC 35.8 g/dL (32.0-37.0); MCV 83.1 fL (80.0-97.0); Mean Platelet Volume 10.4 fL (9.5-12.2); Monocytes # (A) 0.42 10*3/uL (0.20-1.00); Monocytes % (A) 8.2 %; Neutrophils # (A) 2.89 10*3/uL (1.80-7.70); Neutrophils % (A) 56.4 %; Platelet Count 288 10*3/uL (140-440); RBC 5.91 10*6/uL (4.40-5.60); RDW 12.8 % (11.5-14.5); WBC 5.12 10*3/uL (4.50-10.00)
[2024-11-04] MEDS: SODIUM CHLORIDE 0.9% 1,000 ML IV ONE ×2 (13:09→14:37)
[2024-11-04] MEDS: LORazepam 2 MG/ML INJ IV STA (13:10)
[2024-11-04] MEDS: ORPHENADRINE 30 MG/ML 2 ML VIAL IVP STA (13:12)
[2024-11-04 13:16] LABS: ALT 154 U/L (4-49); AST 236 U/L (17-59); African American GFR (CKD) >90 (>60 ml/min/1.73 sqM); Albumin 4.1 g/dL (3.5-5.0); Alcohol 38 mg/dL; Alkaline Phosphatase 67 U/L (38-126); Anion Gap 17 mmol/L; Blood Urea Nitrogen <2 mg/dL (9-20); Calcium 9.2 mg/dL (8.4-10.2); Carbon Dioxide 16 mmol/L (22-30); Chloride 104 mmol/L (98-107); Glucose 98 mg/dL (74-99); Magnesium 1.5 mg/dL (1.6-2.3); Non-African American GFR(CKD) >90 (>60 ml/min/1.73 sqM); Potassium 3.8 mmol/L (3.5-5.1); Sodium 137 mmol/L (137-145); Total Bilirubin 0.8 mg/dL (0.2-1.3); Total Protein 6.7 g/dL (6.3-8.2)
[2024-11-04 13:19] LABS: INR 1.1 (<1.2); Partial Thromboplastin Time 25.4 sec (22.0-30.0); Prothrombin Time 11.7 sec (10.0-12.5)
--- NOTE | 2024-11-04 13:22 | CT ---
EXAMINATION TYPE: CT soft tissue neck w con DATE OF EXAM: 11/04/2024 COMPARISON: NONE CLINICAL INDICATION: Male, 34 years old with history of neck/jaw tightness/ swelling/lock jaw, Lock j aw TECHNIQUE: CT scan of the neck is performed with IV Contrast, patient injected with 100 mL of Isovue 300, axial images are obtained, coronal and sagittal reformatted images are reviewed. CT DLP: 336.5 mGycm. Automated Exposure Control for Dose Reduction was Utilized. FINDINGS: Airway: No gross abnormality seen. Parotid/submandibular glands: No gross abnormality seen. Carotid/Vascular Structures: No suspicious abnormality. Osseous Structures: No suspicious abnormality. Temporomandibular joints are maintained bilaterally. M ultiple cavitary fillings are seen bilaterally. Other: No suspicious greater than 1 cm neck adenopathy. IMPRESSION: No acute findings are seen to account for patient's symptoms. [facility], , 11/04/2024 1:20 PM
[2024-11-04 13:28] LABS: Creatine Kinase 2067 U/L (55-170)
[2024-11-04 14:10] LABS: Appearance,Urine Clear (Clear); Bilirubin,Urine Negative (Negative); Blood,Urine Negative (Negative); Color,Urine Colorless; Glucose,Urine (UA) Negative (Negative); Ketones,Urine 1+ (Negative); Leukocyte Esterase,Urine Negative (Negative); Nitrite,Urine Negative (Negative); Protein,Urine Negative (Negative); Specific Gravity,Urine 1.009 (1.001-1.035); Urobilinogen,Urine <2.0 mg/dL (<2.0)
[2024-11-04] MEDS ORDERED: NALOXONE 0.4 MG/ML 1 ML VIAL IV PRN (14:33)
[2024-11-04] MEDS ORDERED: ACETAMINOPHEN TAB 325 MG TAB PO PRN (14:33)
[2024-11-04] MEDS ORDERED: ONDANSETRON 4 MG/2 ML VIAL IVP PRN (14:33)
[2024-11-04] MEDS ORDERED: ORPHENADRINE 30 MG/ML 2 ML VIAL IVP PRN (14:34)
[2024-11-04 14:36] LABS: Amphetamine Screen,Urine Not Detected (NotDetected); Barbiturate Screen,Urine Not Detected (NotDetected); Benzodiazepines Screen,Urine Not Detected (NotDetected); Cocaine Screen,Urine Not Detected (NotDetected); Methadone Screen, Urine Not Detected (NotDetected); Opiate Screen,Urine Not Detected (NotDetected); Oxycodone Screen, Urine Not Detected (NotDetected); Phencyclidine Screen,Urine Not Detected (NotDetected); Tricyclic Antidepressant,Urine Not Detected (NotDetected); Urn Cannabinoid Scrn Detected (NotDetected)
[2024-11-04] MEDS: SODIUM CHLORIDE 0.9% 1,000 ML IV STA (14:39)
[2024-11-04] MEDS: MAGNESIUM SULFATE-D5W PMX 1 GM in DEXTROSE/WATER 1 100ML.BAG IVPB ONE (14:43)
[2024-11-04] MEDS: SODIUM CHLORIDE 0.9% 1,000 ML IV SCH (14:45)
[2024-11-04] MEDS: diphenhydrAMINE 50 MG/ML 1 ML VIAL IVP STA (15:57)
[2024-11-04] MEDS: busPIRone HCl 5 MG TAB PO PRN (20:01)
[2024-11-04] MEDS: DICYCLOMINE 20 MG TAB PO SCH (20:01)
[2024-11-04] MEDS: LACTATED RINGERS 1,000 ML IV SCH (21:26)
[2024-11-04] MEDS: CALCIUM CARB-VIT D 500 MG-5 MCG TAB PO SCH (21:30)
[2024-11-04] MEDS: ENOXAPARIN 40 MG/0.4 ML SYRINGE SQ SCH (21:30)
[2024-11-04] MEDS: MAGNESIUM OXIDE 400 MG TAB PO SCH (21:30)
[2024-11-04] MEDS: CALCIUM GLUCONATE IN NACL 2 GM in SALINE 1 100ML.BAG IVPB ONE (21:30)
[2024-11-05 06:53] LABS: Basophils # (A) 0.09 10*3/uL (0.00-0.10); Basophils % (A) 1.6 %; Eosinophils # (A) 0.18 10*3/uL (0.04-0.35); Eosinophils % (A) 3.2 %; HCT 45.7 % (39.6-50.0); HGB 15.8 g/dL (13.0-17.0); Lymphocytes # (A) 1.76 10*3/uL (0.90-5.00); Lymphocytes % (A) 31.7 %; MCHC 34.6 g/dL (32.0-37.0); MCV 86.9 fL (80.0-97.0); Mean Platelet Volume 10.8 fL (9.5-12.2); Monocytes # (A) 0.52 10*3/uL (0.20-1.00); Monocytes % (A) 9.4 %; Neutrophils # (A) 2.99 10*3/uL (1.80-7.70); Neutrophils % (A) 53.7 %; Platelet Count 245 10*3/uL (140-440); RBC 5.26 10*6/uL (4.40-5.60); RDW 13.2 % (11.5-14.5); WBC 5.56 10*3/uL (4.50-10.00)
[2024-11-05 07:15] LABS: ALT 116 U/L (4-49); AST 113 U/L (17-59); African American GFR (CKD) >90 (>60 ml/min/1.73 sqM); Albumin 3.5 g/dL (3.5-5.0); Alkaline Phosphatase 60 U/L (38-126); Anion Gap 7 mmol/L; Blood Urea Nitrogen <2 mg/dL (9-20); Calcium 9.5 mg/dL (8.4-10.2); Carbon Dioxide 25 mmol/L (22-30); Chloride 107 mmol/L (98-107); Glucose 80 mg/dL (74-99); Non-African American GFR(CKD) >90 (>60 ml/min/1.73 sqM); Potassium 3.6 mmol/L (3.5-5.1); Sodium 139 mmol/L (137-145); Total Protein 5.8 g/dL (6.3-8.2)
[2024-11-05 07:28] LABS: Creatine Kinase 1085 U/L (55-170)
[2024-11-05 08:05] VITALS: TEMP 97.8
[2024-11-05 11:49] LABS: Ionized Calcium 5.1 mg/dL (4.5-5.3)
[2024-11-05 11:59] LABS: Magnesium 1.6 mg/dL (1.6-2.3)
--- NOTE | 2024-11-05 12:29 | P.CRDCN ---
History of Present Illness Consult date: 11/05/24 History of present illness: This is a 34-year-old male with past medical history of Holli disorder. We have been asked to evaluate the patient for recurrent syncope and chest pain. Patient states that when he wakes up in the morning he has a raspy sore throat and then he has shortness of breath and coughing and wheezing and he has some chest pain in the sternal area. He states he ends up collapsing and passing out. He states this has been going on for the past 7 days. He denies any recent viral illness. His mother states that he did have dark urine prior to this occurring. He states his PCP is trying to get him into the ENT doctor since . Patient currently denies any chest pain. Patient's mother also states that on Tuesday he was in the emergency center and his jaw was locking up. She states that yesterday when she was talking to him on the phone, he had difficulty talking. Patient is s/p calcium, magnesium and Ativan as well as 2 L of IV fluid. Blood pressure 121/77, heart rate 68, pulse ox 99% on room air. -EKG: Sinus rhythm with occasional PVCs -Chest x-ray: No acute process. -Soft tissue CT of the neck no acute findings. -Laboratory studies: CBC normal, creatinine 0.64. Troponin negative x 3. CK 2067 and 1085. Magnesium 1.5, phosphorus 2.4. Urine drug screen positive for marijuana. Serum alcohol level 38 -Home cardiac medications: None Review Of Systems: At the time of my exam: CONSTITUTIONAL: Denies fever or chills. HEENT: Denies blurred vision, vision changes, or eye pain. Denies hemoptysis CARDIOVASCULAR: Denies chest pain. Denies orthopnea. Denies PND. Denies palpitations RESPIRATORY: Denies shortness of breath. GASTROINTESTINAL: Denies abdominal pain. Denies nausea or vomiting. HEMATOLOGIC: Denies bleeding disorders. GENITOURINARY: Denies any blood in urine. SKIN: Denies puritis. Denies rash. Physical examination: Gen: This is a 34-year-old male in no acute distress VS: reviewed HEENT: Head is atraumatic, normocephalic. Pupils equal, round. Sclerae is anicteric. NECK: Supple. No JVD. LUNGS: Clear to auscultation. No wheezes or rhonchi. No intercostal retractions. HEART: Regular rate and rhythm. No murmur. ABDOMEN: Soft No tenderness. EXTREMITIES: No pedal edema. No calf tenderness. NEUROLOGICAL: Patient is awake, alert and oriented x3. Assessment: Sore throat, shortness of breath cough and wheezing-patient is waiting for ENT evaluation Transit sternal chest pain, noncardiac, acute coronary syndrome ruled out Possible syncope Holli disorder Plan: Patient was unable to cooperate for echocardiogram due to coughing and thus canceled Discontinue telemetry Transfer to [facility] floor No further cardiac workup Cardiology will sign off this case and follow on an as-needed basis. Please reconsult for any new concerns. Patient may follow-up in the office in one to 2 weeks. Thank you kindly for this consultation. Nurse practitioner note has been reviewed, I agree with documented findings and plan of care. Patient was seen and examined. 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 pt has ostomy bag Past Anesthesia/Blood Transfusion Reactions: No Reported Reaction Past Psychological History: Depression, PTSD Smoking Status: Former smoker, Vaper Past Alcohol Use History: Daily Past Drug Use History: Marijuana Medications and Allergies Home Medications Medication Instructions Recorded Confirmed Type Dicyclomine [Bentyl] 20 mg PO QID 11/04/24 11/04/24 History busPIRone HCl [Buspar] 5 mg PO BID PRN 11/04/24 11/04/24 History Allergies Allergy/AdvReac Type Severity Reaction Status Date / Time No Known Allergies Allergy Verified 11/04/24 14:02 Physical Exam Vitals: Vital Signs Temp Pulse Pulse Resp BP BP Pulse Ox 11/05/24 08:03 97.8 F 70 16 133/79 99 11/05/24 03:33 97.5 F L 65 16 114/72 99 11/04/24 23:27 97.6 F 64 16 115/72 99 11/04/24 21:25 97.6 F 76 16 115/71 99 11/04/24 19:29 97.8 F 87 16 120/78 98 11/04/24 16:32 85 16 129/75 97 05/04/25 16:00 98.4 F 76 20 134/76 97 11/04/24 14:55 103 H 18 99 11/04/24 14:44 90 20 130/76 100 11/04/24 13:15 73 18 136/87 98 11/04/24 11:52 98.6 F 89 22 129/85 99 Intake and Output 11/04/24 11/05/24 11/05/24 22:59 06:59 14:59 Intake Total 2079 Balance 2079 Intake: IV 2079 Lactated Ringers 1,000 ml 2080 @ 150 mls/hr IV .Q6H40M [facility] Rx#:[id number] Other: Voiding Method Toilet Toilet Weight 154.221 kg 112.7 kg Results 11/05/24 06:07 11/05/24 06:07 Cardiac Enzymes 11/04/24 11/04/24 11/04/24 Range/Units 12:31 12:31 15:36 AST 236 H (17-59) U/L Troponin I <0.012 <0.012 (0.000-0.034) ng/mL 11/04/24 11/05/24 Range/Units 18:12 06:07 AST 113 H (17-59) U/L Troponin I <0.012 (0.000-0.034) ng/mL Coagulation 11/04/24 Range/Units 12:31 PT 11.7 (10.0-12.5) sec APTT 25.4 (22.0-30.0) sec CBC 11/04/24 11/05/24 Range/Units 12:31 06:07 WBC 5.12 5.56 (4.50-10.00) 10*3/uL RBC 5.91 H 5.26 (4.40-5.60) 10*6/uL Hgb 17.6 H 15.8 (13.0-17.0) g/dL Hct 49.1 45.7 (39.6-50.0) % Plt Count 288 245 (140-440) 10*3/uL Comprehensive Metabolic Panel 11/04/24 11/05/24 Range/Units 12:31 06:07 Sodium 137 139 (137-145) mmol/L Potassium 3.8 3.6 (3.5-5.1) mmol/L Chloride 104 107 (98-107) mmol/L Carbon Dioxide 16 L 25 (22-30) mmol/L BUN <2 L <2 L (9-20) mg/dL Creatinine 0.58 L 0.64 L (0.66-1.25) mg/dL Glucose 98 80 (74-99) mg/dL Calcium 9.2 9.5 (8.4-10.2) mg/dL AST 236 H 113 H (17-59) U/L ALT 154 H 116 H (4-49) U/L Alkaline Phosphatase 67 60 (38-126) U/L Total Protein 6.7 5.8 L (6.3-8.2) g/dL Albumin 4.1 3.5 (3.5-5.0) g/dL Current Medications Generic Name Dose Route Start Last Admin Trade Name Freq PRN Reason Stop Dose Admin Acetaminophen 650 mg 11/04/24 14:33 Acetaminophen Tab 325 Mg Tab PO Q6HR PRN Mild Pain or Fever > 100.5 Buspirone HCl 5 mg 11/04/24 19:39 11/04/24 20:01 Buspirone Hcl 5 Mg Tab PO 5 mg BID PRN Administration Anxiety Calcium Carbonate 1 each 11/04/24 21:06 11/05/24 06:15 Calcium Carb-Vit D 500 Mg-5 Mcg Tab PO 1 each TID-W/MEALS KIMMY Administration Dicyclomine HCl 20 mg 11/04/24 22:00 11/05/24 08:05 Dicyclomine 20 Mg Tab PO 20 mg QID KIMMY Administration Enoxaparin Sodium 40 mg 11/04/24 21:00 11/05/24 08:05 Enoxaparin 40 Mg/0.4 Ml Syringe SQ 40 mg DAILY KIMMY Administration Lactated Ringer's 1,000 mls @ 150 mls/hr 11/04/24 21:15 11/05/24 04:22 Lactated Ringers IV 150 mls/hr .Q6H40M KIMMY Administration Magnesium Oxide 400 mg 11/04/24 22:00 11/05/24 08:05 Magnesium Oxide 400 Mg Tab PO 400 mg TID KIMMY Administration Naloxone HCl 0.2 mg 11/04/24 14:33 Naloxone 0.4 Mg/Ml 1 Ml Vial IV Q2M PRN Opioid Reversal Ondansetron HCl 4 mg 11/04/24 14:33 Ondansetron 4 Mg/2 Ml Vial IVP Q8HR PRN Nausea And Vomiting Orphenadrine Citrate 60 mg 11/04/24 14:34 Orphenadrine 30 Mg/Ml 2 Ml Vial IVP Q12HR PRN Spasms Intake and Output 11/04/24 11/05/24 11/05/24 22:59 06:59 14:59 Intake Total 2079 Balance 2079 Intake: IV 2079 Lactated Ringers 1,000 ml 2080 @ 150 mls/hr IV .Q6H40M [facility] Rx#:[id number] Other: Voiding Method Toilet Toilet Weight 154.221 kg 112.7 kg 11/05/24 06:07 11/05/24 06:07
[2024-11-05 15:15] VITALS: BP 119/77; PULSE 60; RESP 18
[2024-11-05] MEDS: POTAS-SOD-PHOS 280-160-250 MG 1 EACH PACKET PO SCH (17:42)
--- NOTE | 2024-11-05 22:43 | P.HPIM ---
History of Present Illness H&P Date: 11/05/24 Chief Complaint: Multiple symptom 34-year-old patient who follows with Elham Shepard. Patient is accompanied by his mother. Patient is rather extensive medical h istory. 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 Diagnosed several years ago, in 1995 in [place].. It was confirmed by muscle biopsy. Patient is gets episodes of rhabdomyolysis. Because that he is on chronic disability. He is also had muscle removed because of the same. He is careful about his diet. Also patient had cancer of the rectum and the surgery did not go well. As a result complication patient has a colostomy. Since 2020. Patient does follow with physicians [place] including destination specialist. Patient takes Bentyl for bowel spasms. Also takes medications for depression. For 7 days patient is having episodes where he gets a bit of a cough tickling. Then he gets bouts of coughing. He feels like a knot-like sensation in the lower chest. Gets very anxious. Nearly passing out. The symptoms will go pro minent in the last 7 days. He also had a EGD by his destination specialist who found a gastric ulcer. Patient felt the Prilosec was not helping hence it was discontinued. Patient normally empties his colostomy bag about to 3 times a day. Patient also has chronic burping. When patient presented to the ER he was found to have low magnesium, low phosphorus, ionized calcium was low. He was also finding that his muscles were tightening and locking up. Given IV calcium gluconate last night. Started on calcium supplement. Review of systems: GEN.: Gets tired EYES: None HEENT: As above NECK: None RESPIRATORY: Does get short of breath sometimes. No swelling in the legs CARDIOVASCULAR: None GASTROINTESTINAL: Colostomy bag GENITOURINARY: None MUSCULOSKELETAL: [Muscles do ache and get stiff. With activity. LYMPHATICS: None HEMATOLOGICAL: None PSYCHIATRY: Very anxious NEUROLOGICAL: None Social history: Lives with his girlfriend Yolanda. On disability. Does marijuana Gummies every other day. Patient stopped vaping about a week ago. 1 paper lasting for about 2 weeks. Has been vaping for close to 3 years. Physical examination: VITAL SIGNS: 97.8, 70, 16, 133 x 79, 99% room air GENERAL: BMI 32.8, sitting at the edge of the bed, anxious. EYES: Pupils equal. Conjunctiva jonathon l. HEENT: External appearance of nose and ears normal, oral cavity grossly normal. NECK: JVD not raised; masses not palpable. HEART: First and second heart sounds are normal; no edema. LUNGS: Respiratory rate normal; clear to auscultation. ABDOMEN: Soft, nontender, liver spleen not palpable, no masses palpable. Colostomy bag. Midline healing scar PSYCH: Alert and oriented x3; mood and affect anxious with pressured talk. l. MUSCULOSKELETAL:No Clubbing/cyanosis;muscles-grossly intact NEUROLOGICAL: Cranial nerves grossly intact; no facial asymmetry, power and sensation grossly intact. LYMPHATICS: No lymph nodes palpable in the axilla and neck INVESTIGATIONS, reviewed in the clinical context: November 05: White count 5.5 hemoglobin 15.8 platelets 245 sodium 139 potassium 3.6 BUN less than 2 creatinine 0.64 AST 113 ALT 116 creatinine kinase 1085 magnesium 1.6 ionized calcium 5.1 November 04: White count 5.1 platelets 288 potassium 3.8 BUN less than 2 creatinine 0.58 lactic acid 3.3 phosphorus 2.4 magnesium 1.5 AST 236 ALT 154 CPK 2067 Parathyroid hormone intact 23.7 UA: Ketones 1+ Urine drug screen positive for marijuana Serum alcohol 38 Assessment plan: - Acute muscle cramping combination of hypocalcemia, hypomagnesemia, with underlying Holli's disease. Replacement of magnesium, calcium, phosphorus - Hypocalcemia Calcium gluconate given yesterday. Os-Edwin vitamin D was started. Changed to Os-Edwin with vitamin D once daily - Hypomagnesemia, replace - Hypophosphatemia. 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 Currently does not follow-up with anyone. Patient told to [facility] at [facility]or [facility]. - GERD Patient has an appointment with his GI physician. Told to resume Prilosec. - Gastric ulcer per recent EGD Patient to continue PPI - Significant anxiety, depression Patient on BuSpar. Advised on mindfulness exercises. Including using an shyam for the same. - Shortness of breath likely bronchospasm from vaping. Patient counseled against the use of the same - Panic attacks Patient counseled about mindfulness. Told to follow-up with psychiatry outpatient. - Chronic colostomy since 2020. Did change his bag about 3 times a day. - Chronic abdominal pain with spasms. Continue with Bentyl - Chest pain. Possibly psychosomatic. Cardiology is consulted. Troponins negative - Acute rhabdomyolysis with underlying Holli's disease. Further precipitated by other slight abnormalities Patient receiving IV fluids overnight. - Lactic acidosis type II due to underlying muscle disorder from Holli disease. - Full code Care was discussed at length with the patient and mother. Several questions answered. 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 pt has ostomy bag Past Anesthesia/Blood Transfusion Reactions: No Reported Reaction Past Psychological History: Depression, PTSD Smoking Status: Former smoker, Vaper Past Alcohol Use History: Daily Past Drug Use History: Marijuana Medications and Allergies Home Medications Medication Instructions Recorded Confirmed Type Dicyclomine [Bentyl] 20 mg PO QID 11/04/24 11/04/24 History busPIRone HCl [Buspar] 5 mg PO BID PRN 11/04/24 11/04/24 History Calcium Carb-Vit D 500Mg-5Mcg 1 each PO DAILY #30 tab 11/05/24 Rx [Oscal 500+D 5 Mcg (200 Iu)] Magnesium Oxide [Mag-Ox] 400 mg PO DAILY #30 tab 11/05/24 Rx Fjcaf-Tkw-Ingm 280-160-250 mg 1 packet PO TID #6 packet 11/05/24 Rx [Neutra-Phos Packet] Allergies Allergy/AdvReac Type Severity Reaction Status Date / Time No Known Allergies Allergy Verified 11/04/24 14:02 Physical Exam Vitals: Vital Signs Temp Pulse Pulse Resp BP BP Pulse Ox 11/05/24 08:03 97.8 F 70 16 133/79 99 11/05/24 03:33 97.5 F L 65 16 114/72 99 11/04/24 23:27 97.6 F 64 16 115/72 99 11/04/24 21:25 97.6 F 76 16 115/71 99 11/04/24 19:29 97.8 F 87 16 120/78 98 11/04/24 16:32 85 16 129/75 97 11/04/24 16:00 98.4 F 76 20 134/76 97 11/04/24 14:55 103 H 18 99 11/04/24 14:44 90 20 130/76 100 11/04/24 13:15 73 18 136/87 98 11/04/24 11:52 98.6 F 89 22 129/85 99 Intake and Output 11/04/24 11/05/24 11/05/24 22:59 06:59 14:59 Intake Total 2079 240 Balance 2079 240 Intake: IV 0 Lactated Ringers 1,000 ml 2080 @ 150 mls/hr IV .Q6H40M [facility] Rx#:[id number] Oral 240 Other: Voiding Method Toilet Toilet Weight 154.221 kg 112.7 kg Results CBC & Chem 7: 11/05/24 06:07 11/05/24 06:07 Labs: Abnormal Lab Results - Last 24 Hours (Table) 11/04/24 11/04/24 11/04/24 Range/Units 12:31 12:31 12:31 RBC 5.91 H (4.40-5.60) 10*6/uL Hgb 17.6 H (13.0-17.0) g/dL Carbon Dioxide 16 L (22-30) mmol/L BUN <2 L (9-20) mg/dL Creatinine 0.58 L (0.66-1.25) mg/dL Plasma Lactic Acid Davy 3.3 H* (0.7-2.0) mmol/L Ionized Calcium Mitch (4.5-5.3) mg/dL Phosphorus (2.5-4.5) mg/dL Magnesium 1.5 L (1.6-2.3) mg/dL AST 236 H (17-59) U/L ALT 154 H (4-49) U/L Creatine Kinase 2067 H* (55-170) U/L Total Protein (6.3-8.2) g/dL Urine Ketones (Negative) U Marijuana (THC) Screen (NotDetected) 11/04/24 11/04/24 11/04/24 Range/Units 12:31 13:40 13:40 RBC (4.40-5.60) 10*6/uL Hgb (13.0-17.0) g/dL Carbon Dioxide (22-30) mmol/L BUN (9-20) mg/dL Creatinine (0.66-1.25) mg/dL Plasma Lactic Acid Davy (0.7-2.0) mmol/L Ionized Calcium Mitch (4.5-5.3) mg/dL Phosphorus 2.4 L (2.5-4.5) mg/dL Magnesium (1.6-2.3) mg/dL AST (17-59) U/L ALT (4-49) U/L Creatine Kinase (55-170) U/L Total Protein (6.3-8.2) g/dL Urine Ketones 1+ H (Negative) U Marijuana (THC) Screen Detected H (NotDetected) 11/04/24 11/05/24 Range/Units 15:36 06:07 RBC (4.40-5.60) 10*6/uL Hgb (13.0-17.0) g/dL Carbon Dioxide (22-30) mmol/L BUN <2 L (9-20) mg/dL Creatinine 0.64 L (0.66-1.25) mg/dL Plasma Lactic Acid Davy (0.7-2.0) mmol/L Ionized Calcium Mitch 4.3 L (4.5-5.3) mg/dL Phosphorus (2.5-4.5) mg/dL Magnesium (1.6-2.3) mg/dL AST 113 H (17-59) U/L ALT 116 H (4-49) U/L Creatine Kinase 1085 H* (55-170) U/L Total Protein 5.8 L (6.3-8.2) g/dL Urine Ketones (Negative) U Marijuana (THC) Screen (NotDetected) Thrombosis Risk Factor Assmnt - Choose All That Apply Any of the Below Risk Factors Present?: No
--- NOTE | 2024-11-05 22:47 | P.DS ---
Providers Date of admission: 11/04/24 14:33 Expected date of discharge: 11/05/24 Attending physician: Jairon Santos Consults: 11/04/24 14:33 Consult Physician Routine Consulting Provider: [facility] Consult Reason/Comments: recurrent syncope, chest pain Do you want consulting provider notified?: Yes 11/05/24 09:52 Consult Physician Routine Consulting Provider: Elieser Rodriguez Consult Reason/Comments: throat/ neck pain, swelling. Do you want consulting provider notified?: Yes Primary care physician: [facility] Course: Chief Complaint: Multiple symptom 34-year-old patient who follows with Elham Shepard. Patient is accompanied by his mother. Patient is rather extensive medical history. 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 Diagnosed several years ago, in 1995 in [place].. It was confirmed by muscle biopsy. Patient is gets episodes of rhabdomyolysis. Because that he is on chronic disability. He is also had muscle removed because of the same. He is careful about his diet. Also patient had cancer of the rectum and the surgery did not go well. As a result complication patient has a colostomy. Since 2020. Patient does follow with physicians [place] including picker box operator. Patient takes Bentyl for bowel spasms. Also takes medications for depression. For 7 days patient is having episodes where he gets a bit of a cough tickling. Then he gets bouts of coughing. He feels like a knot-like sensation in the l ower chest. Gets very anxious. Nearly passing out. The symptoms will go prominent in the last 7 days. He also had a EGD by his picker box operator who found a gastric ulcer. Patient felt the Prilosec was not helping hence it was discontinued. Patient normally empties his colostomy bag about to 3 times a day. Patient also has chronic burping. When patient presented to the ER he was found to have low magnesium, low phosphorus, ionized calcium was low. He was also finding that his muscles were tightening and locking up. Given IV calcium gluconate last night. Started on calcium supplement. Patient has magnesium, ionized calcium, corrected with supplement. Also given phosphorus supplement. Patient to follow-up outpatient with psychiatry, endocrinology, will follow specialist on Holli disease. [facility]. Follow-up with a GI doctor. Questions answered. Advised about mindfulness. Breathing exercises. Social history: Lives with his girlfriend On disability. Does marijuana Gummies every other day. Patient stopped vaping about a week ago. 1 paper lasting for about 2 weeks. Has been vaping for close to 3 years. Physical examination: VITAL SIGNS: 97.8, 70, 16, 133 x 79, 99% room air GENERAL: BMI 32.8, sitting at the edge of the bed, anxious. EYES: Pupils equal. Conjunctiva jonathon l. HEENT: External appearance of nose and ears normal, oral cavity grossly normal. NECK: JVD not raised; masses not palpable. HEART: First and second heart sounds are normal; no edema. LUNGS: Respiratory rate normal; clear to auscultation. ABDOMEN: Soft, nontender, liver spleen not palpable, no masses palpable. Colostomy bag. Midline healing scar PSYCH: Alert and oriented x3; mood and affect anxious with pressured talk. l. MUSCULOSKELETAL:No Clubbing/cyanosis;muscles-grossly intact NEUROLOGICAL: Cranial nerves grossly intact; no facial asymmetry, power and sensation grossly intact. LYMPHATICS: No lymph nodes palpable in the axilla and neck INVESTIGATIONS, reviewed in the clinical context: November 05: White count 5.5 hemoglobin 15.8 platelets 245 sodium 139 potassium 3.6 BUN less than 2 creatinine 0.64 AST 113 ALT 116 creatinine kinase 1085 magnesium 1.6 ionized calcium 5.1 November 04: White count 5.1 platelets 288 potassium 3.8 BUN less than 2 creatinine 0.58 lactic acid 3.3 phosphorus 2.4 magnesium 1.5 AST 236 ALT 154 CPK 2067 Parathyroid hormone intact 23.7 UA: Ketones 1+ Urine drug screen positive for marijuana Serum alcohol 38 Assessment plan: - Acute muscle cramping combination of hypocalcemia, hypomagnesemia, with un derlying Holli's disease. Replacement of magnesium, calcium, phosphorus - Hypocalcemia Calcium gluconate given yesterday. Os-Edwin vitamin D was started. Changed to Os-Edwin with vitamin D once daily - Hypomagnesemia, replace - Hypophosphatemia. Neutra-Phos also discharged few doses. 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 Currently does not follow-up with anyone. Patient told to follow-up at [facility]/or [facility]. - GERD Patient has an appointment with his GI physician. Told to resume Prilosec. - Gastric ulcer per recent EGD Patient to continue PPI - Significant anxiety, depression Patient on BuSpar. Advised on mindfulness exercises. Including using an shyam for the same Follow-up with psychiatry. - Transaminitis. Likely from underlying glycogen-storage disease. Patient due to follow-up with his GI doctor this week. - Shortness of breath likely bronchospasm from vaping. Patient counseled against the use of the same - Panic attacks Patient counseled about mindfulness. Told to follow-up with psychiatry outpatient. - Chronic colostomy since 2020. Did change his bag about 3 times a day. - Chronic abdominal pain with spasms. Continue with Bentyl - Chest pain. Possibly psychosomatic. Cardiology is consulted. Troponins negative - Acute rhabdomyolysis with underlying Holli's disease. Further precipitated by other slight abnormalities Patient receiving IV fluids overnight. - Lactic acidosis type II due to underlying muscle disorder from Holli diseas e. - Full code Disposition: Home Labs: CMP including liver enzymes, calcium, phosphorus, magnesium within the week 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 pt has ostomy bag Past Anesthesia/Blood Transfusion Reactions: No Reported Reaction Past Psychological History: Depression, PTSD Smoking Status: Former smoker, Vaper Past Alcohol Use History: Daily Past Drug Use History: Marijuana Plan - Discharge Summary Discharge Rx Participant: No New Discharge Prescriptions: New Magnesium Oxide [Mag-Ox] 400 mg PO DAILY #30 tab Calcium Carb-Vit D 500Mg-5Mcg [Oscal 500+D 5 Mcg (200 Iu)] 1 each PO DAILY #30 tab Wtcln-Lyb-Yetj 280-160-250 mg [Neutra-Phos Packet] 1 packet PO TID #6 packet Continue busPIRone HCl [Buspar] 5 mg PO BID PRN PRN Reason: Anxiety Dicyclomine [Bentyl] 20 mg PO QID Discharge Medication List Dicyclomine [Bentyl] 20 mg PO QID 11/04/24 [History] busPIRone HCl [Buspar] 5 mg PO BID PRN 11/04/24 [History] Calcium Carb-Vit D 500Mg-5Mcg [Oscal 500+D 5 Mcg (200 Iu)] 1 each PO DAILY #30 tab 11/05/24 [Rx] Magnesium Oxide [Mag-Ox] 400 mg PO DAILY #30 tab 11/05/24 [Rx] Yaabv-Edk-Dpbh 280-160-250 mg [Neutra-Phos Packet] 1 packet PO TID #6 packet 11/05/24 [Rx] Follow up Appointment(s)/Referral(s): Cale Torres MD [Primary Care Provider] - 1-2 days Activity/Diet/Wound Care/Special Instructions: Patient to follow-up with 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 [employer]sea [employer] Mindfulness techniques as advised Smiling mind-shyam to be used Breathing exercises as advised Next appointment with his PCP to get magnesium, phosphorus, calcium checked.-No prescription needed for labs for now Discharge Disposition: HOME SELF-CARE
== END 2024-11-05 18:07 | disposition home or self-care (01) ==
LOC: EC 11:49 → UNDOADMIN 14:33 → 3SCARD 14:33 → INTOOBSV 14:34 → 3SCARD 15:42 → UNDODISIN 11-05 18:07
PROVIDERS: ADMIT Hospitalist; ATTEND Hospitalist
DX: E83.51 Hypocalcemia (principal); E83.42 Hypomagnesemia; E83.39 Other disorders of phosphorus metabolism; E74.04 McArdle disease; M62.82 Rhabdomyolysis; R06.02 Shortness of breath; R74.01 Elevation of levels of liver transaminase levels; R53.1 Weakness; R55 Syncope and collapse; R06.2 Wheezing; J02.9 Acute pharyngitis, unspecified; R07.89 Other chest pain; G89.29 Other chronic pain; R10.9 Unspecified abdominal pain; E87.20 Acidosis, unspecified; K21.9 Gastro-esophageal reflux disease without esophagitis; K25.9 Gastric ulcer, unspecified as acute or chronic, without hemorrhage or perforation; F41.9 Anxiety disorder, unspecified; F32.A Depression, unspecified; F41.0 Panic disorder [episodic paroxysmal anxiety]; K58.9 Irritable bowel syndrome, unspecified; Z79.899 Other long term (current) drug therapy; Z87.891 Personal history of nicotine dependence; Z93.3 Colostomy status; Z85.048 Personal history of other malignant neoplasm of rectum, rectosigmoid junction, and anus
CPT/HCPCS: 96361 ×2; 96372 ×2; 96365; 96375; 99285; 36415; 93005; 85379; 80053 ×2; 82330 ×2; 82550 ×2; 83605; 83735 ×2; 84100; 84484; 85025 ×2; 85610; 85730; 81003; 80306; 80320; 83970; 71046; 70491; G0378 ×2; J2060; J1200; J2360; J1650 ×2; J3475; Q9967; J0613

== ENCOUNTER → 2025-01-03 | Outpatient (CLI) | payer MEDICARE, OTHER ==
[2025-01-03 20:35] LABS: Basophils # (A) 0.07 X 10*3/uL (0.00-0.10); Basophils % (A) 0.9 %; Eosinophils # (A) 0.13 X 10*3/uL (0.04-0.35); Eosinophils % (A) 1.6 %; HCT 46.3 % (39.6-50.0); HGB 15.7 g/dL (13.0-17.0); Immature Grans, Automated 0.60 %; Lymphocytes # (A) 1.59 X 10*3/uL (0.90-5.00); Lymphocytes % (A) 19.6 %; MCH 30.7 pg (27.0-32.0); MCHC 33.9 g/dL (32.0-37.0); MCV 90.4 FL (80.0-97.0); Monocytes # (A) 0.59 X 10*3/uL (0.20-1.00); Monocytes % (A) 7.3 %; NRBC Per 100 WBC 0 X 10*3/uL (0.00-0.01); Neutrophils # (A) 5.69 X 10*3/uL (1.80-7.70); Neutrophils % (A) 70.0 %; Platelet Count 234 X 10*3/uL (140-440); RBC 5.12 X 10*6/uL (4.40-5.60); RDW 16.9 % (11.5-14.5); WBC 8.12 X 10*3/uL (4.50-10.00)
[2025-01-03 21:29] LABS: ALT 45 U/L (10-49); AST 72 U/L (14-35); Albumin 4.4 g/dL (3.8-4.9); Albumin/Globulin Ratio 1.63 Ratio (1.60-3.17); Alkaline Phosphatase 67 U/L (41-126); Anion Gap 14.30 mmol/L (4.00-12.00); BUN/Creat Ratio 8.60 Ratio (12.00-20.00); Blood Urea Nitrogen 8.6 mg/dL (9.0-27.0); Calcium 9.6 mg/dL (8.7-10.3); Carbon Dioxide 21.7 mmol/L (21.6-31.8); Chloride 101 mmol/L (96-109); Ferritin 199.0 ng/mL (22.0-322.0); GGT 73 U/L (0-73); Globulin 2.7 g/dL (1.6-3.3); Glucose 111 mg/dL (70-110); Hepatitis B Surface Antigen Nonreactive (Nonreactive); Hepatitis C IgG Antibody Nonreactive (Nonreactive); Iron 72 UG/DL (65-175); Potassium 4.7 mmol/L (3.5-5.5); Sodium 137 mmol/L (135-145); Total Iron Binding Capacity 350 UG/DL (228-460); Total Protein 7.1 g/dL (6.2-8.2)
== END | disposition home or self-care (01) ==
LOC: LABWHC1 13:17
PROVIDERS: ATTEND Nurse Practitioner Family
DX: R74.8 Abnormal levels of other serum enzymes (principal)
CPT/HCPCS: 36415; 80053; 81596; 82103; 82390; 82728; 82977; 83516; 83540; 83550; 84165; 85025; 86038; 86803; 87340